=== PATIENT | female | born 1965 | race African-American/Black ===

== ENCOUNTER 2016-06-20 10:02 | Day surgery (SDC) | payer BC ==
[~2016-06-20 10:02] MED LIST: ACETTAB3 OR; ADVAIR DISK1 IN; ADVAIR DISK1 INH; ALBUTEROL2.5 MG/3 M IN; ALPRAZOLAM0.25 M1 PO; AMITRIPTYLIN50 MG OR; AMLODIPINE10 MG PO; AVELOX400 MG OR; AVELOX400 MG PO; BREO ELLIPTA1 INH NEB; BREO ELLIPTA1 INH PO; CARDIZEM CD120 MG PO; CARDURA2 MG OR; CIPROFLOXACN500 MG PO; CORTISPORIN OTI10 ML AD; COUMADIN3 MG PO; COUMADIN5 MG PO; DILTIAZEM HCL240 MG PO; DILTIAZEM240 MG PO; DULCOLAX5 MG PO; DYMISTA1 SPR; FIORICET OR; FIORICET PO; LOPRESSOR50 MG OR; LORTAB 1010 MG PO; LORTAB 7.57.5 MG PO; LORTAB5 PO; LOSARTAN POT100 MG PO; LOSARTAN POT50 MG PO; LOTREL 5/101 CAP OR; Levaquin PO; MEDDOSEPAK OR; MEDDOSEPAK PO; METO100T50 PO; METO25TAB OR; METO50TA52 OR; METOPROLOL50 M1 PO; METRONIDAZOL500 MG PO; MIDRIN OR; MIRALAX3350 NF PO; NAPROSYN500 MG PO; PROBIOTIC1 TAB PO; PROTONIX40 M2 PO; PROVENTIL HFA IN; PROVENTIL0.083 % IN; RANITIDINE150 M1 PO; ROCEPHIN 1 GM1 GM IV; SENOKOT S1 TAB PO; SINGULAIR PO; SINGULAIR10 MG PO; SUMATRIPTAN SU100 MG PO; TOPIRAMATE100 MG PO; TOPIRAMATE25 M1 OR; TRAMADOL HCL50 MG PO; ULTRAM50 M1 OR; ULTRAM50 M1 PO; ULTRAM50 MG OR; ULTRAM50 MG PO; VERAPAMIL120 M1 PO; XANAX0.25 MG PO; XARELTO10 MG PO; XARELTO20 MG PO; XOPENEX HFA IN; ZITHROMAX500 MG PO; ZOFRAN ODT4 MG OR; ZOFRAN ODT4 MG PO; ZOFRAN ODT4 MG SL; [UNRECOGNIZED DRUG - OTHER] OR
[2016-06-20 12:03] VITALS: BP 143/70
== END 2016-06-20 12:30 | disposition home or self-care (01) | DRG 379 ==
LOC: ENDO 10:02 → ORM 21:00
PROVIDERS: ATTEND Internal Medicine Gastroenterology
PROC: 0DBK8ZX Excision of Ascending Colon, Via Natural or Artificial Opening Endoscopic, Diagnostic (ICD-10-PCS; principal; 2016-06-20)
PROC: 0DBL8ZX Excision of Transverse Colon, Via Natural or Artificial Opening Endoscopic, Diagnostic (ICD-10-PCS; 2016-06-20)
DX: K62.5 Hemorrhage of anus and rectum (principal); I48.91 Unspecified atrial fibrillation; I10 Essential (primary) hypertension; K29.70 Gastritis, unspecified, without bleeding; R10.13 Epigastric pain; D12.3 Benign neoplasm of transverse colon; D12.2 Benign neoplasm of ascending colon; K64.8 Other hemorrhoids; K64.4 Residual hemorrhoidal skin tags; K57.30 Diverticulosis of large intestine without perforation or abscess without bleeding; G47.30 Sleep apnea, unspecified; J45.909 Unspecified asthma, uncomplicated; Z86.010 Personal history of colon polyps

== ENCOUNTER 2016-12-26 05:47 | Day surgery (SDC) | payer BC ==
[~2016-12-26] VITALS: Ht 152.4 cm; Wt 90.7 kg
[~2016-12-26 05:47] MED LIST changes: +HYZAAR1 TA1 PO
[2016-12-26 08:40] VITALS: BP 123/58
== END 2016-12-26 08:55 | disposition home or self-care (01) | DRG 379 ==
LOC: ENDO 05:47 → ORM 12:00 → ENDO 12:00 → ORM 12:15
PROVIDERS: ATTEND Internal Medicine Gastroenterology
PROC: 0DBK8ZX Excision of Ascending Colon, Via Natural or Artificial Opening Endoscopic, Diagnostic (ICD-10-PCS; principal; 2016-12-26)
PROC: 0DBL8ZX Excision of Transverse Colon, Via Natural or Artificial Opening Endoscopic, Diagnostic (ICD-10-PCS; 2016-12-26)
PROC: 0DBN8ZX Excision of Sigmoid Colon, Via Natural or Artificial Opening Endoscopic, Diagnostic (ICD-10-PCS; 2016-12-26)
DX: K62.5 Hemorrhage of anus and rectum (principal); D12.2 Benign neoplasm of ascending colon; K64.8 Other hemorrhoids; K57.90 Diverticulosis of intestine, part unspecified, without perforation or abscess without bleeding; D12.3 Benign neoplasm of transverse colon; K63.5 Polyp of colon; K64.4 Residual hemorrhoidal skin tags; K29.70 Gastritis, unspecified, without bleeding; R10.13 Epigastric pain

== ENCOUNTER 2017-01-05 16:26 | Emergency (ER) | payer BC ==
[~2017-01-05] VITALS: Ht 152.4 cm; Wt 97.6 kg
[2017-01-05] MEDS ORDERED: SINGULAIR10 MG PO (17:06)
[2017-01-05 17:07] LABS: HEMATOCRIT 44.1 % (37.0-47.0); HEMOGLOBIN 14.2 g/dl (12.0-16.0); MEAN CELL VOLUME 87.3 fL CALC (80.0-100.0); MEAN CORPUSCULAR HGB 28.1 pG CALC (26.0-32.0); MEAN CORPUSCULAR HGB CONC 32.2 g/L CALC (32.0-36.0); NEUT# 8.4 thou/uL (2.00-7.15); RED BLOOD COUNT 5.05 mill/uL (4.20-5.60); RED CELL DISTRI WIDTH 14.1 % (11.5-15.5)
[2017-01-05 17:08] LABS: URINE BILIRUBIN - DIPSTICK NEGATIVE (NEGATIVE); URINE BLOOD DIPSTICK SMALL (NEGATIVE); URINE CLARITY CLEAR; URINE COLOR YELLOW; URINE GLUCOSE - DIPSTICK NEGATIVE (NEGATIVE); URINE KETONE NEGATIVE (NEGATIVE); URINE LEUK ESTERASE NEGATIVE (NEGATIVE); URINE NITRITE - DIPSTICK NEGATIVE (Negative); URINE PROTEIN - DIPSTICK NEGATIVE (NEG-TRACE); URINE SPECIFIC GRAVITY 1.015; URINE UROBILINOGEN - DIPSTICK 0.2 E.U./dL (0.2)
[2017-01-05] MEDS ORDERED: NORVASC5 M1 PO (17:21)
[2017-01-05] MEDS ORDERED: XOLAIR150 MG SC (17:22)
[2017-01-05] MEDS ORDERED: Levaquin PO (17:23)
[2017-01-05] MEDS ORDERED: PREDNISONE20 MG PO (17:23)
[2017-01-05 17:25] LABS: URINE SQUAMOUS EPITHELIAL CELL FEW EPI/hpf (0-FEW); URINE WBC 0-2 WBC/hpf (0-5)
[2017-01-05 17:44] LABS: ALBUMIN 4.6 g/dL (3.2-5.0); ALKALINE PHOSPHATASE 110 u/l (38-126); AMYLASE 146 u/l (30-110); ANION GAP 18 (6-22 (CALC)); BILIRUBIN, TOTAL 0.4 mg/dL (0.0-1.4); BUN 12 mg/dL (7-17); BUN/CREATININE RATIO 19 (12-20 (CALC)); CALCIUM 9.3 mg/dL (8.4-10.2); CARBON DIOXIDE 26 mmol/l (22-30); CHLORIDE 104 mmol/l (95-108); CREATININE 0.6 mg/dL (0.5-1.0); GFR > 60 ML/MIN (>=60 (CALC)); GFR FOR AFR.AMER. > 60 ML/MIN (>=60 (CALC)); GLUCOSE 123 mg/dL (65-105); LIPASE 325 u/l (23-300); POTASSIUM 4.1 mmol/l (3.5-5.1); SGOT/AST 59 u/l (14-36); SGPT/ALT 104 u/l (9-52); SODIUM 143 mmol/l (137-146); TOTAL PROTEIN 8.6 g/dL (6.3-8.2)
[2017-01-05 17:56] LABS: MYOGLOBIN 20 ng/mL (0 - 62)
[2017-01-05] MEDS ORDERED: ZITHROMAX250 MG PO (18:14)
[2017-01-05] MEDS ORDERED: TESSALON PER100 MG PO (18:14)
[2017-01-05] MEDS ORDERED: COLACE100 MG PO (18:14)
[2017-01-05] MEDS ORDERED: PREDNISONE50 MG PO (18:14)
[2017-01-05 18:22] VITALS: BP 172/83
== END 2017-01-05 18:34 | disposition home or self-care (01) | DRG 378 ==
LOC: ED 16:26
PROVIDERS: Emergency Medicine
DX: K62.5 Hemorrhage of anus and rectum (principal); J45.901 Unspecified asthma with (acute) exacerbation; I10 Essential (primary) hypertension; I48.91 Unspecified atrial fibrillation; I25.10 Atherosclerotic heart disease of native coronary artery without angina pectoris; F41.9 Anxiety disorder, unspecified; Z86.73 Personal history of transient ischemic attack (TIA), and cerebral infarction without residual deficits

== ENCOUNTER 2017-01-25 14:05 | Observation (INO) | payer BC ==
[~2017-01-25] VITALS: Ht 152.4 cm; Wt 94.7 kg
[~2017-01-25 14:05] MED LIST changes: +COLACE100 MG PO; +NORVASC5 M1 PO; +PREDNISONE20 MG PO; +PREDNISONE50 MG PO; +TESSALON PER100 MG PO; +XOLAIR150 MG SC; +ZITHROMAX250 MG PO
--- NOTE | 2017-01-25 14:16 | NUR ---
PT TAKEN STRAIGHT BACK TO ER ROOM 12 VIA WC. PT CHANGED INTO GOWN BY SELF. MD & RN @ BEDSIDE.
--- NOTE | 2017-01-25 14:38 | NUR ---
PT NOW WITH EKG DONE, IV ESTABLISHED WITH BLOOD DRAW. NO ACUTE DISTRESS NOTED.
[2017-01-25 14:42] LABS: HEMATOCRIT 40.6 % (37.0-47.0); IMMATURE GRANULOCYTES 0.1 % (0.0-1.0); MEAN CELL VOLUME 88.8 fL CALC (80.0-100.0); MEAN CORPUSCULAR HGB 28.4 pG CALC (26.0-32.0); NEUT# 3.55 thou/uL (2.00-7.15); RED BLOOD COUNT 4.57 mill/uL (4.20-5.60); RED CELL DISTRI WIDTH 14.5 % (11.5-15.5)
[2017-01-25 15:25] LABS: ALBUMIN 4.2 g/dL (3.2-5.0); ALKALINE PHOSPHATASE 93 u/l (38-126); ANION GAP 14 (6-22 (CALC)); BILIRUBIN, TOTAL 0.4 mg/dL (0.0-1.4); BUN 11 mg/dL (7-17); BUN/CREATININE RATIO 11 (12-20 (CALC)); CALCIUM 9.3 mg/dL (8.4-10.2); CARBON DIOXIDE 31 mmol/l (22-30); CHLORIDE 100 mmol/l (95-108); CREATININE 0.9 mg/dL (0.5-1.0); GFR > 60 ML/MIN (>=60 (CALC)); GFR FOR AFR.AMER. > 60 ML/MIN (>=60 (CALC)); GLUCOSE 106 mg/dL (65-105); LIPASE 332 u/l (23-300); POTASSIUM 3.5 mmol/l (3.5-5.1); SGOT/AST 26 u/l (14-36); SGPT/ALT 43 u/l (9-52); SODIUM 141 mmol/l (137-146); TOTAL PROTEIN 7.1 g/dL (6.3-8.2)
--- NOTE | 2017-01-25 15:38 | NUR ---
PT AMBULATORY TO BR, NO DISTRESS. PT DOES COMPLAIN OF BACK PAIN, STATES THAT SHE NEEDED TO SLEEP SITTING ALMOST STRAIGHT UP LAST NIGHT.
[2017-01-25 17:00] VITALS: BP 141/86
--- NOTE | 2017-01-25 17:00 | NUR ---
PT EMOTIONAL AND VOICES CONCERNS OF POSSIBLE COLON CANCER, RECENT VISIT TO [facility]. AWAITING RESULTS.
--- NOTE | 2017-01-25 17:00 | NUR ---
PT TRANSFERED TO UNIT VIA STRETCHER WITH RUPA READ. PT ORIENTED TO ROOM AND CALL LIGHT SYSTEM. NO SIGNS OF DISTRESS FROM PT. SAFETY PRECAUTIONS IN PLACE. CALL LIGHT IN PLACE. WILL CONTINUE TO MONITOR HOURLY.
--- NOTE | 2017-01-25 17:13 | NUR ---
PT TAKEN TO ROOM 262 WITHOUT INCIDENT, REPORT WAS TO CHARLES.
[2017-01-25] MEDS ORDERED: LOSARTAN/HCT1 TA2 PO (17:45)
[2017-01-25 18:00] VITALS: BP 126/81
--- NOTE | 2017-01-25 22:00 | NUR ---
PT RESTING IN HIGH FOWLERS POSITION;ASSESSMENT COMPLETED;#20G TO RAC INFUSING NS @ 125ML/HR WELL;PT COMPLAINS OF LEFT SIDED ABDOMINAL PAIN AND RADIATING BACK PAIN;EDUCATED PT ON PAIN MEDICATION SCHEDULE, COOL COMPRESSES PROVIDED PER REQUEST;NO SOB NOTED AT THIS TIME; PT AMBULATED WITH WEAK GAIT AND ASSISTED DEVICE TO BATHROOM AND VOIDED 300CC OF CLEAR/YELLOW URINE;PT REPOSITIONED INTO BED;TRACE EDEMA NOTED TO RIGHT ANKLE,OTHERWISE SKIN INTACT;SAFETY PRECAUTIONS REINFORCED;PT EDUCATED TO CALL FOR ASSISTANCE IF NEEDED;CALL LIGHT IN REACH;WILL CONTINUE TO MONITOR
--- NOTE | 2017-01-25 23:30 | NUR ---
PT COMPLAINS OF LEFT SIDED ABDOMINAL PAIN RATING 10/10 ON THE PAIN SCALE AND REQUESTS PAIN MEDICATION;PT MEDICATED WITH PRN DILAUDID 0.5MG AT THIS TIME;IV FLUIDS INFUSING WELL TO RAC;PT VOICES NO OTHER COMPLAINTS OR NEEDS;WILL CONTINUE TO MONITOR
[2017-01-25 23:55] VITALS: BP 126/72
[2017-01-26] VITALS (7 sets, daily range): BP systolic 118–153; BP diastolic 69–95
--- NOTE | 2017-01-26 03:28 | NUR ---
PT COMPLAINS OF HEADACHE PAIN RATING 5/10 ON THE PAIN SCALE AND REQUESTS PRN PAIN MEDICATION;PT MEDICATED WITH TYLENOL 650MG;PT REPORTS THAT SHE FEELS LIKE HER BP IS ELEVATED,PER REQUEST MANUAL BP OF 121/70 OBTAINED;PT THEN ASKES FOR AN EMESIS BACK BECAUSE SHE FEELS NAUSEOUS;IV FLUIDS INFUSING WELL @ 125ML/HR;RESPIRATIONS EVEN AND UNLABORED ON RA;CALL LIGHT IN REACH;WILL CONTINUE TO MONITOR FOR EFFECT
[2017-01-26 05:54] LABS: HEMATOCRIT 37.6 % (37.0-47.0); HEMOGLOBIN 11.8 g/dl (12.0-16.0); MEAN CELL VOLUME 89.5 fL CALC (80.0-100.0); MEAN CORPUSCULAR HGB 28.1 pG CALC (26.0-32.0); MEAN CORPUSCULAR HGB CONC 31.4 g/L CALC (32.0-36.0); RED BLOOD COUNT 4.2 mill/uL (4.20-5.60); RED CELL DISTRI WIDTH 14.6 % (11.5-15.5)
--- NOTE | 2017-01-26 06:10 | NUR ---
PT COMPLAINS ABDOMINAL PAIN AND HEADACHE PAIN AT THIS TIME;PT DENIES THE NEED/WANT FOR DILAUDID AND IS EDUCATED THAT IT IS TO SOON FOR HER TO RECEIVE HER TYLENOL;COOL COMPRESS PROVIDED TO HEAD AND LIGHTS DIMMED FOR COMFORT;PT DENIES ANY OTHER NEEDS AT THIS TIME AND IS EDUCATED TO CALL FOR ASSISTANCE IF NEEDED;CALL LIGHT IN REACH;WILL CONTINUE TO MONITOR
[2017-01-26 06:18] LABS: ANION GAP 12 (6-22 (CALC)); BUN 10 mg/dL (7-17); BUN/CREATININE RATIO 17 (12-20 (CALC)); CALCIUM 8.6 mg/dL (8.4-10.2); CALCULATED LDLCHOLESTEROL 76 mg/dL (62-129 (CALC)); CARBON DIOXIDE 28 mmol/l (22-30); CHLORIDE 102 mmol/l (95-108); CHOLESTEROL HDL RATIO 2.4 (<4.4 (CALC)); CREATININE 0.6 mg/dL (0.5-1.0); GFR > 60 ML/MIN (>=60 (CALC)); GFR FOR AFR.AMER. > 60 ML/MIN (>=60 (CALC)); GLUCOSE 100 mg/dL (65-105); HDL CHOLESTEROL 67 mg/dL (>=40); LIPASE 233 u/l (23-300); POTASSIUM 3.5 mmol/l (3.5-5.1); SODIUM 139 mmol/l (137-146); TOTAL CHOLESTEROL 161 mg/dl (0-199); TOTAL TRIGLYCERIDES 91 mg/dl (30-149); VLDL CHOLESTROL 18 mg/dl (2-49 (CALC))
--- NOTE | 2017-01-26 07:00 | NUR ---
RECEIVED BEDSIDE REPORT FROM GILES PORTILLO. RESTING IN HIGH FOWLERS WITH EYES CLOSED, AWAKENS EASILY. RESPS EVEN AND UNLABORED ON ROOM AIR, TELE MONITOR IN PLACE. #20RAC INFUSING WITHOUT DIFFICULTY, SITE APPEARS HEALTHY. VOICES NO NEEDS AT THIS TIME. PLAN OF CARE DISCUSSED. SAFETY PRECAUTIONS REINFORCED. BED IN LOWEST POSITION WITH WHEELS LOCKED. CALL LIGHT WITHIN REACH. ENCOURAGED PT TO CALL FOR ANY NEEDS.
--- NOTE | 2017-01-26 10:55 | NUR ---
MEDICATED WITH FIORICET PO AND MORPHINE 2MG IVP FOR C/O 12/30 HEADACHE. WILL CONTINUE TO MONITOR.
--- NOTE | 2017-01-26 11:35 | NUR ---
DR MORLEY IN WITH PT, NEW ORDERS RECEIVED.
--- NOTE | 2017-01-26 14:15 | NUR ---
TO CT SCAN IN STABLE CONDITION VIA WHEELCHAIR ACCOMPANIED BY VOLUNTEER.
--- NOTE | 2017-01-26 14:30 | NUR ---
FROM CT SCAN VIA WHEELCHAIR ACCOMPANIED BY VOLUNTEER.
--- NOTE | 2017-01-26 14:40 | NUR ---
SPOKE to patient about her pancreatitis conditions. She mentioned not to experience any side effects with her current medications. She still experience a lot of pain in her abdominal region. She does not have any questions to do doctors or pharmacists at this time.
--- NOTE | 2017-01-26 16:45 | NUR ---
MEDICATED WITH MORPHINE 2MG IVP FOR C/O 10/30 HEADACHE. RESPS EVEN AND UNLABORED ON ROOM AIR, TELE MONITOR IN PLACE. CALL LIGHT WITHIN REACH. WILL CONTINUE TO MONITOR.
--- NOTE | 2017-01-26 19:15 | NUR ---
MEDICATED WITH FIORICET PO FOR C/O 10/30 HEADACHE. AMBULATED TO BATHROOM WITH STEADY GAIT.
--- NOTE | 2017-01-26 19:29 | NUR ---
TOLERATED REGULAR DIET WITHOUT C/O ABD PAIN OR NAUSEA. CALL LIGHT WITHIN REACH. WILL CONTINUE TO MONITOR.
--- NOTE | 2017-01-26 20:45 | NUR ---
PT RESTING IN HIGH FOWLERS POSITION WITH FAMILY AT BEDSIDE;PT VOICES NO COMPLAINTS OF PAIN AT THIS TIME;RESPIRATIONS EVEN AND UNLABORED ON RA;ASSESSMENT COMPLETED;#20G TO RAC INFUSING NS @ 125ML/HR;TELE MONITOR IN PLACE;PT DENIES ANY NEEDS AT THIS TIME;SAFETY PRECAUTIONS REINFORCED;CALL LIGHT IN REACH;WILL CONTINUE TO MONITOR
--- NOTE | 2017-01-26 23:55 | NUR ---
PT APPEARS TO BE SLEEPING IN SEMI FOWLERS POSITION;VS OBTAINED BY KRISTIAN NICHOLS;RESPIRATIONS EVEN AND UNLABORED ON RA;PT VOICES NO COMPLAINTS AT THIS TIME;CALL LIGHT IN REACH;WILL CONTINUE TO MONITOR
[2017-01-27 04:05] VITALS: BP 125/79
--- NOTE | 2017-01-27 04:05 | NUR ---
PT RESTING IN SEMI FOWLERS POSITION WITH IV FLUIDS INFUSING WELL TO RAC;PT COMPLAINS OF A HEADACHE PAIN AND REQUESTS MEDICATION;PT TO BE MEDICATED PER ORDERS;RESPIRATIONS EVEN AND UNLABORED ON RA;VS OBTAINED;WILL CONTINUE TO MONITOR
--- NOTE | 2017-01-27 04:30 | NUR ---
PT MEDICATED WITH PRN FIORIECT 1 COMBO FOR HEADACHE PAIN RATING 8/10 ON THE PAIN SCALE
--- NOTE | 2017-01-27 07:00 | NUR ---
RECEIVED BEDSIDE REPORT FROM GILES PORTILLO. RESTING IN SEMI FOWLERS WITH EYES CLOSED, AWAKENS EASILY. RESPS EVEN AND UNLABORED ON ROOM AIR, TELE MONITOR IN PLACE. #20 RAC INFUSING WITHOUT DIFFICULTY, SITE APPEARS HEALTHY. DENIES PAIN OR DISCOMFORT. PLAN OF CARE DISCUSSED. SAFETY PRECAUTIONS REINFORCED. BED IN LOWEST POSITION WITH WHEELS LOCKED. CALL LIGHT WITHIN REACH. ENCOURAGED PT TO CALL FOR ANY NEEDS.
[2017-01-27 07:25] VITALS: BP 141/65
[2017-01-27 08:49] VITALS: BP 141/65
[2017-01-27 09:17] LABS: MAGNESIUM 1.9 mg/dL (1.6-2.3)
--- NOTE | 2017-01-27 10:30 | NUR ---
DR MORLEY IN WITH PT, NEW ORDERS RECEIVED.
[2017-01-27] MEDS ORDERED: CARAFATE1 GM PO (11:54)
[2017-01-27] MEDS ORDERED: PANTOPRAZOLE SO40 M1 PO (11:54)
--- NOTE | 2017-01-27 12:10 | NUR ---
SITTING IN BEDSIDE CHAIR EATING LUNCH. RESPS EVEN AND UNLABORED ON ROOM AIR, TELE MONITOR IN PLACE. MEDICATED WITH FIORICET PO FOR C/O HEADACHE. CALL LIGHT WITHIN REACH. WILL CONTINUE TO MONITOR.
--- NOTE | 2017-01-27 13:40 | NUR ---
Discharge instructions given. Patient verbalizes understanding of same. Discharged in stable condition via Wheelchair to Home with family. All belongings sent with pt.
== END 2017-01-27 13:39 | disposition home or self-care (01) | DRG 440 ==
LOC: ED 14:05 → ED-I 15:47 → ED 16:02 → MS2 16:03
PROVIDERS: Emergency Medicine; Nurse Practitioner Family; ADMIT Internal Medicine; ATTEND Internal Medicine
DX: K85.90 Acute pancreatitis without necrosis or infection, unspecified (principal); I48.91 Unspecified atrial fibrillation; I10 Essential (primary) hypertension; F41.9 Anxiety disorder, unspecified; G43.909 Migraine, unspecified, not intractable, without status migrainosus; I25.10 Atherosclerotic heart disease of native coronary artery without angina pectoris; J45.909 Unspecified asthma, uncomplicated; Z86.73 Personal history of transient ischemic attack (TIA), and cerebral infarction without residual deficits; Z79.01 Long term (current) use of anticoagulants; Z87.891 Personal history of nicotine dependence; Z86.010 Personal history of colon polyps
CPT/HCPCS: G0378

== ENCOUNTER 2017-06-15 08:43 | Emergency (ER) | payer BC ==
[~2017-06-15] VITALS: Ht 152.4 cm; Wt 90.9 kg
[~2017-06-15 08:43] MED LIST changes: +CARAFATE1 GM PO; +LOSARTAN/HCT1 TA2 PO; +PANTOPRAZOLE SO40 M1 PO
[2017-06-15] MEDS ORDERED: KLOR-CON M2020 MEQ PO (09:17)
[2017-06-15 10:12] LABS: HEMATOCRIT 39.4 % (37.0-47.0); HEMOGLOBIN 12.5 g/dl (12.0-16.0); IMMATURE GRANULOCYTES 0.4 % (0.0-1.0); MEAN CELL VOLUME 89.1 fL CALC (80.0-100.0); MEAN CORPUSCULAR HGB 28.3 pG CALC (26.0-32.0); MEAN CORPUSCULAR HGB CONC 31.7 g/L CALC (32.0-36.0); NEUT# 3.74 thou/uL (2.00-7.15); RED BLOOD COUNT 4.42 mill/uL (4.20-5.60)
[2017-06-15 10:29] LABS: ANION GAP 18 (6-22 (CALC)); BUN 8 mg/dL (7-17); BUN/CREATININE RATIO 12 (12-20 (CALC)); CARBON DIOXIDE 32 mmol/l (22-30); CHLORIDE 98 mmol/l (95-108); CREATININE 0.7 mg/dL (0.5-1.0); GFR > 60 ML/MIN (>=60 (CALC)); GFR FOR AFR.AMER. > 60 ML/MIN (>=60 (CALC)); POTASSIUM 3.2 mmol/l (3.5-5.1); SODIUM 145 mmol/l (137-146)
[2017-06-15] MEDS ORDERED: DOXYCYC MONO100 M2 PO (14:00)
[2017-06-15 14:22] VITALS: BP 114/65
[2017-06-15] MEDS ORDERED: VOLTAREN1%GEL TOP (14:30)
== END 2017-06-15 14:29 | disposition home or self-care (01) | DRG 552 ==
LOC: ED 08:43
PROVIDERS: Family Medicine
DX: M54.2 Cervicalgia (principal); M47.812 Spondylosis without myelopathy or radiculopathy, cervical region; M54.6 Pain in thoracic spine; M47.814 Spondylosis without myelopathy or radiculopathy, thoracic region
CPT/HCPCS: A9579

== ENCOUNTER 2017-08-15 09:57 | Emergency (ER) | payer BC ==
[~2017-08-15] VITALS: Ht 152.4 cm; Wt 90.9 kg
[~2017-08-15 09:57] MED LIST changes: +DOXYCYC MONO100 M2 PO; +KLOR-CON M2020 MEQ PO; +VOLTAREN1%GEL TOP
[2017-08-15 10:33] LABS: URINE BILIRUBIN - DIPSTICK NEGATIVE (NEGATIVE); URINE BLOOD DIPSTICK TRACE-LYSED (NEGATIVE); URINE COLOR YELLOW; URINE GLUCOSE - DIPSTICK NEGATIVE (NEGATIVE); URINE KETONE NEGATIVE (NEGATIVE); URINE LEUK ESTERASE NEGATIVE (NEGATIVE); URINE NITRITE - DIPSTICK NEGATIVE (Negative); URINE PROTEIN - DIPSTICK NEGATIVE (NEG-TRACE); URINE UROBILINOGEN - DIPSTICK 0.2 E.U./dL (0.2)
[2017-08-15 10:33] LABS: HEMATOCRIT 41.6 % (37.0-47.0); HEMOGLOBIN 12.8 g/dl (12.0-16.0); IMMATURE GRANULOCYTES 0.2 % (0.0-1.0); MEAN CELL VOLUME 88.7 fL CALC (80.0-100.0); MEAN CORPUSCULAR HGB 27.3 pG CALC (26.0-32.0); MEAN CORPUSCULAR HGB CONC 30.8 g/L CALC (32.0-36.0); NEUT# 3.47 thou/uL (2.00-7.15); RED BLOOD COUNT 4.69 mill/uL (4.20-5.60); RED CELL DISTRI WIDTH 14.1 % (11.5-15.5)
[2017-08-15 10:40] LABS: URINE CLARITY CLEAR
[2017-08-15] MEDS ORDERED: METO50TA52 PO (10:40)
[2017-08-15 10:52] LABS: ALBUMIN 4.2 g/dL (3.2-5.0); ALKALINE PHOSPHATASE 109 u/l (38-126); ANION GAP 15 (6-22 (CALC)); BILIRUBIN, TOTAL 0.5 mg/dL (0.0-1.4); BUN 11 mg/dL (7-17); BUN/CREATININE RATIO 16 (12-20 (CALC)); CARBON DIOXIDE 32 mmol/l (22-30); CHLORIDE 98 mmol/l (95-108); CREATININE 0.7 mg/dL (0.5-1.0); GFR > 60 ML/MIN (>=60 (CALC)); GFR FOR AFR.AMER. > 60 ML/MIN (>=60 (CALC)); LIPASE 304 u/l (23-300); POTASSIUM 3.6 mmol/l (3.5-5.1); SGOT/AST 24 u/l (14-36); SGPT/ALT 42 u/l (9-52); SODIUM 141 mmol/l (137-146)
[2017-08-15 13:26] VITALS: BP 107/70
== END 2017-08-15 13:26 | disposition home or self-care (01) | DRG 103 ==
LOC: ED 09:57
PROVIDERS: Family Medicine
DX: R51 Headache (principal); K44.9 Diaphragmatic hernia without obstruction or gangrene; R10.11 Right upper quadrant pain; M54.2 Cervicalgia; R11.0 Nausea
CPT/HCPCS: Q9967

== ENCOUNTER 2017-12-02 09:07 | Emergency (ER) | payer BC ==
[~2017-12-02] VITALS: Ht 152.4 cm; Wt 94.1 kg
[~2017-12-02 09:07] MED LIST changes: +METO50TA52 PO
[2017-12-02] MEDS ORDERED: MEDDOSEPAK PO (10:49)
[2017-12-02 11:15] VITALS: BP 137/83
== END 2017-12-02 11:15 | disposition home or self-care (01) | DRG 103 ==
LOC: ED 09:07
DX: R51 Headache (principal); M46.92 Unspecified inflammatory spondylopathy, cervical region; I10 Essential (primary) hypertension; J45.909 Unspecified asthma, uncomplicated; I48.91 Unspecified atrial fibrillation; Z86.73 Personal history of transient ischemic attack (TIA), and cerebral infarction without residual deficits

== ENCOUNTER 2018-04-22 11:41 | Emergency (ER) | payer BC ==
[~2018-04-22] VITALS: Ht 152.4 cm; Wt 90.9 kg
[2018-04-22] MEDS ORDERED: WARFARIN1 MG PO (13:44)
[2018-04-22] MEDS ORDERED: PROVENTIL0.083 % IN (13:47)
[2018-04-22] MEDS ORDERED: BREO ELLIPTA1 INH PO (13:47)
[2018-04-22] MEDS ORDERED: XOLAIR150 MG SC (13:48)
[2018-04-22 15:35] LABS: HEMATOCRIT 41.4 % (37.0-47.0); HEMOGLOBIN 12.5 g/dl (12.0-16.0); IMMATURE GRANULOCYTES 0.4 % (0.0-5.0); MEAN CELL VOLUME 87.7 fL CALC (80.0-100.0); MEAN CORPUSCULAR HGB 26.5 pG CALC (26.0-32.0); MEAN CORPUSCULAR HGB CONC 30.2 g/L CALC (32.0-36.0); NEUT# 5.57 thou/uL (2.00-7.15); RED BLOOD COUNT 4.72 mill/uL (4.20-5.60); RED CELL DISTRI WIDTH 14.5 % (11.5-15.5)
[2018-04-22 15:57] LABS: ALBUMIN 4.3 g/dL (3.2-5.0); ALKALINE PHOSPHATASE 106 u/l (38-126); BILIRUBIN, TOTAL 0.2 mg/dL (0.0-1.4); BUN 8 mg/dL (7-17); BUN/CREATININE RATIO 13 (12-20 (CALC)); CARBON DIOXIDE 24 mmol/l (22-30); CHLORIDE 105 mmol/l (95-108); CREATININE 0.6 mg/dL (0.5-1.0); GFR > 60 ML/MIN (>=60 (CALC)); GFR FOR AFR.AMER. > 60 ML/MIN (>=60 (CALC)); SGOT/AST 27 u/l (14-36); SODIUM 140 mmol/l (137-146); TOTAL PROTEIN 7.5 g/dL (6.3-8.2)
[2018-04-22 15:58] LABS: ANION GAP 15 (6-22 (CALC)); POTASSIUM 4.4 mmol/l (3.5-5.1)
[2018-04-22] MEDS ORDERED: ANUCORT-HC25 MG RE (19:09)
[2018-04-22 19:21] VITALS: BP 142/76
== END 2018-04-22 19:20 | disposition home or self-care (01) | DRG 379 ==
LOC: ED 11:41
PROVIDERS: Emergency Medicine
DX: K62.5 Hemorrhage of anus and rectum (principal); K64.4 Residual hemorrhoidal skin tags
CPT/HCPCS: Q9967

== ENCOUNTER 2018-11-06 22:21 | Emergency (ER) | payer BC ==
[~2018-11-06] VITALS: Ht 152.4 cm; Wt 95.4 kg
[~2018-11-06 22:21] MED LIST changes: +ANUCORT-HC25 MG RE; +WARFARIN1 MG PO
[2018-11-06] MEDS ORDERED: LORATADINE10 M4 PO (22:59)
[2018-11-06] MEDS ORDERED: LOSARTAN/HCT1 TA2 PO (23:00)
[2018-11-06] MEDS ORDERED: XARELTO10 MG PO (23:01)
[2018-11-06] MEDS ORDERED: HYDROCODONE/ACE1 TAB PO (23:02)
[2018-11-06] MEDS ORDERED: BACTRIM DS1 TAB PO (23:03)
[2018-11-06 23:09] LABS: IMMATURE GRANULOCYTES 0.6 % (0.0-5.0); MEAN CORPUSCULAR HGB 24.5 pG CALC (26.0-32.0); MEAN CORPUSCULAR HGB CONC 30.3 g/L CALC (32.0-36.0); NEUT# 8.26 thou/uL (2.00-7.15); RED BLOOD COUNT 4.2 mill/uL (4.20-5.60); RED CELL DISTRI WIDTH 16.6 % (11.5-15.5)
[2018-11-06 23:11] LABS: HEMOGLOBIN 10.3 g/dl (12.0-16.0)
[2018-11-06 23:24] LABS: ALBUMIN 3.9 g/dL (3.2-5.0); ALKALINE PHOSPHATASE 80 u/l (38-126); BUN 6 mg/dL (7-17); BUN/CREATININE RATIO 7 (12-20 (CALC)); CHLORIDE 101 mmol/l (95-108); CREATININE 0.9 mg/dL (0.5-1.0); GFR > 60 ML/MIN (>=60 (CALC)); GFR FOR AFR.AMER. > 60 ML/MIN (>=60 (CALC)); SGOT/AST 28 u/l (14-36); SODIUM 138 mmol/l (137-146); TOTAL PROTEIN 7.2 g/dL (6.3-8.2)
[2018-11-06 23:28] LABS: ANION GAP 10 (6-22 (CALC)); BILIRUBIN, TOTAL 0.4 mg/dL (0.0-1.4); CARBON DIOXIDE 30 mmol/l (22-30); POTASSIUM 3.1 mmol/l (3.5-5.1)
[2018-11-07] MEDS ORDERED: DOXYCYCL HYC100 MG PO (00:05)
[2018-11-07 00:30] VITALS: BP 130/78
== END 2018-11-07 00:30 | disposition home or self-care (01) | DRG 863 ==
LOC: ED 22:21
PROVIDERS: Family Medicine
DX: T81.41XA Infection following a procedure, superficial incisional surgical site, initial encounter (principal); L03.115 Cellulitis of right lower limb; I10 Essential (primary) hypertension; I48.91 Unspecified atrial fibrillation; L27.0 Generalized skin eruption due to drugs and medicaments taken internally; T37.0X5A Adverse effect of sulfonamides, initial encounter; Y83.1 Surgical operation with implant of artificial internal device as the cause of abnormal reaction of the patient, or of later complication, without mention of misadventure at the time of the procedure

== ENCOUNTER 2019-04-19 09:09 | Emergency (ER) | payer BC ==
[~2019-04-19 09:09] MED LIST changes: +BACTRIM DS1 TAB PO; +DOXYCYCL HYC100 MG PO; +HYDROCODONE/ACE1 TAB PO; +LORATADINE10 M4 PO
[2019-04-19 09:50] VITALS: BP 145/90
[2019-12-26] MEDS ORDERED: SLOW-MAG PO (09:53)
[2019-12-26] MEDS ORDERED: [UNRECOGNIZED DRUG - OTHER] (09:53)
[2019-12-26] MEDS ORDERED: LORCET 5-325 MG1 TAB (09:54)
[2019-12-26] MEDS ORDERED: TRULANCE3 MG PO (09:54)
== END 2019-04-19 11:29 | disposition left against medical advice (07) | DRG 951 ==
LOC: ED 09:09 → LWOBS 11:29
DX: Z53.21 Procedure and treatment not carried out due to patient leaving prior to being seen by health care provider (principal)

== ENCOUNTER 2019-05-08 17:16 | Observation (INO) | payer BC ==
[~2019-05-08] VITALS: Ht 152.4 cm; Wt 94.6 kg
[2019-05-08 18:13] LABS: HEMATOCRIT 39.8 % (37.0-47.0); HEMOGLOBIN 11.7 g/dl (12.0-16.0); IMMATURE GRANULOCYTES 0.1 % (0.0-5.0); MEAN CELL VOLUME 81.2 fL CALC (80.0-100.0); MEAN CORPUSCULAR HGB 23.9 pG CALC (26.0-32.0); MEAN CORPUSCULAR HGB CONC 29.4 g/L CALC (32.0-36.0); NEUT# 5.77 thou/uL (2.00-7.15); RED BLOOD COUNT 4.9 mill/uL (4.20-5.60); RED CELL DISTRI WIDTH 16.3 % (11.5-15.5)
[2019-05-08 18:31] LABS: ALBUMIN 4.4 g/dL (3.2-5.0); ALKALINE PHOSPHATASE 97 u/l (38-126); ANION GAP 14 (6-22 (CALC)); BILIRUBIN, TOTAL 0.3 mg/dL (0.0-1.4); BUN 8 mg/dL (7-17); BUN/CREATININE RATIO 14 (12-20 (CALC)); CARBON DIOXIDE 27 mmol/l (22-30); CHLORIDE 103 mmol/l (95-108); CREATININE 0.5 mg/dL (0.5-1.0); GFR > 60 ML/MIN (>=60 (CALC)); GFR FOR AFR.AMER. > 60 ML/MIN (>=60 (CALC)); POTASSIUM 3.2 mmol/l (3.5-5.1); SGOT/AST 24 u/l (14-36); SODIUM 141 mmol/l (137-146); TOTAL PROTEIN 7.8 g/dL (6.3-8.2)
[2019-05-08 20:45] VITALS: BP 158/79
[2019-05-08 22:01] LABS: URINE BILIRUBIN - DIPSTICK NEGATIVE (NEGATIVE); URINE BLOOD DIPSTICK NEGATIVE (NEGATIVE); URINE COLOR YELLOW; URINE GLUCOSE - DIPSTICK NEGATIVE (NEGATIVE); URINE KETONE NEGATIVE (NEGATIVE); URINE LEUK ESTERASE NEGATIVE (NEGATIVE); URINE NITRITE - DIPSTICK NEGATIVE (Negative); URINE PROTEIN - DIPSTICK NEGATIVE (NEG-TRACE); URINE SPECIFIC GRAVITY <=1.005; URINE UROBILINOGEN - DIPSTICK 0.2 E.U./dL (0.2)
[2019-05-08 23:39] VITALS: BP 107/65
[2019-05-09 04:35] VITALS: BP 125/84
[2019-05-09 06:30] LABS: HEMATOCRIT 36.8 % (37.0-47.0); HEMOGLOBIN 10.8 g/dl (12.0-16.0); IMMATURE GRANULOCYTES 0.3 % (0.0-5.0); MEAN CELL VOLUME 81.1 fL CALC (80.0-100.0); MEAN CORPUSCULAR HGB 23.8 pG CALC (26.0-32.0); MEAN CORPUSCULAR HGB CONC 29.3 g/L CALC (32.0-36.0); NEUT# 3.85 thou/uL (2.00-7.15); RED BLOOD COUNT 4.54 mill/uL (4.20-5.60); RED CELL DISTRI WIDTH 16.4 % (11.5-15.5)
[2019-05-09 06:39] LABS: ANION GAP 10 (6-22 (CALC)); BUN 6 mg/dL (7-17); BUN/CREATININE RATIO 11 (12-20 (CALC)); CARBON DIOXIDE 31 mmol/l (22-30); CHLORIDE 103 mmol/l (95-108); CREATININE 0.5 mg/dL (0.5-1.0); GFR > 60 ML/MIN (>=60 (CALC)); GFR FOR AFR.AMER. > 60 ML/MIN (>=60 (CALC)); SODIUM 140 mmol/l (137-146)
[2019-05-09 06:43] LABS: POTASSIUM 3.9 mmol/l (3.5-5.1)
[2019-05-09 08:38] VITALS: BP 126/86
[2019-05-09 11:10] LABS: CHOLESTEROL HDL RATIO 2.5 (<4.4 (CALC)); MAGNESIUM 2.1 mg/dL (1.6-2.3)
[2019-05-09 12:05] VITALS: BP 127/77
[2019-05-09 16:00] VITALS: BP 117/75
[2019-05-09 19:03] VITALS: BP 116/66
[2019-05-09 23:30] VITALS: BP 106/55
[2019-05-10 04:30] VITALS: BP 111/69
[2019-05-10 08:48] VITALS: BP 131/90
[2019-05-10] MEDS ORDERED: HYDROCODONE/ACE1 TAB PO (10:02)
[2019-05-10] MEDS ORDERED: ZOFRAN4 MG/TAB PO ×2 (10:02)
[2019-05-10 11:31] VITALS: BP 113/78
[2019-12-26] MEDS ORDERED: [UNRECOGNIZED DRUG - OTHER] (09:53)
[2019-12-26] MEDS ORDERED: SLOW-MAG PO (09:53)
[2019-12-26] MEDS ORDERED: LORCET 5-325 MG1 TAB (09:54)
[2019-12-26] MEDS ORDERED: TRULANCE3 MG PO (09:54)
== END 2019-05-10 12:41 | disposition home or self-care (01) | DRG 313 ==
LOC: ED 17:16 → ED-I 18:58 → ED 19:17 → MS2 19:18
PROVIDERS: Family Medicine; Nurse Practitioner Family; ADMIT Internal Medicine; ATTEND Internal Medicine
DX: R07.9 Chest pain, unspecified (principal); R51 Headache; I48.0 Paroxysmal atrial fibrillation; I10 Essential (primary) hypertension; I25.10 Atherosclerotic heart disease of native coronary artery without angina pectoris; J45.909 Unspecified asthma, uncomplicated; F41.9 Anxiety disorder, unspecified; E78.5 Hyperlipidemia, unspecified; M25.561 Pain in right knee; Z87.891 Personal history of nicotine dependence; Z86.73 Personal history of transient ischemic attack (TIA), and cerebral infarction without residual deficits; Z79.01 Long term (current) use of anticoagulants
CPT/HCPCS: G0378

== ENCOUNTER 2020-01-03 16:00 | Inpatient (IN) | payer BC ==
[2020-01-03] VITALS (7 sets, daily range): BP systolic 104–154; BP diastolic 73–86
[~2020-01-03] VITALS: Ht 152.4 cm; Wt 98.9 kg
[~2020-01-03 16:00] MED LIST changes: +LORCET 5-325 MG1 TAB; +SLOW-MAG PO; +TRULANCE3 MG PO; +ZOFRAN4 MG/TAB PO; +[UNRECOGNIZED DRUG - OTHER]
--- NOTE | 2020-01-03 16:15 | NUR ---
PT TO ICU BED 6 AMBULATORY WITH CANE. PT HAS EXERTIONAL SOB. PT IS ALERT AND ORIENTED X3. PT CHANGED TO GOWN AND PLACED ON MONITOR. ADMISSION ASSESSMENT COMPLETED AT THIS TIME. IV PLACED #20 RW X1 ATTEMPT. ORIENTED TO UNIT, ROOM, AND CALL LIGHT SYSTEM. PT VERBALIZED UNDERSTANDING. CALL LIGHT IN REACH. WILL CONTINUE TO MONITOR.
--- NOTE | 2020-01-03 16:25 | NUR ---
LAB AND RT AT BEDSIDE FOR EKG, ABG, AND LABS
--- NOTE | 2020-01-03 16:36 | NUR ---
CALLED DR MORLEY TO NOTIFY THAT PT IS SINUS TACH AND IF DIGOXIN WAS TO STILL BE GIVEN. HE STATES YES.
--- NOTE | 2020-01-03 16:45 | NUR ---
PT MEDICATED WITH DIGOXIN PER MD ORDERS. PT TOLERATED WELL. PT REMAINS ST ON MONITOR. WILL ORDER EKG FOR 1 HOUR.
[2020-01-03 17:07] LABS: HEMATOCRIT 41.1 % (37.0-47.0); HEMOGLOBIN 11.9 g/dl (12.0-16.0); IMMATURE GRANULOCYTES 0.3 % (0.0-5.0); MEAN CELL VOLUME 83.5 fL CALC (80.0-100.0); MEAN CORPUSCULAR HGB 24.2 pG CALC (26.0-32.0); NEUT# 6.18 thou/uL (2.00-7.15); RED BLOOD COUNT 4.92 mill/uL (4.20-5.60); RED CELL DISTRI WIDTH 17.2 % (11.5-15.5)
[2020-01-03 17:27] LABS: ALBUMIN 4.1 g/dL (3.2-5.0); ALKALINE PHOSPHATASE 104 u/l (38-126); ANION GAP 12 (6-22 (CALC)); BILIRUBIN, TOTAL 0.2 mg/dL (0.0-1.4); BUN 7 mg/dL (7-17); BUN/CREATININE RATIO 14 (12-20 (CALC)); CARBON DIOXIDE 25 mmol/l (22-30); CHLORIDE 104 mmol/l (95-108); CREATININE 0.5 mg/dL (0.5-1.0); GFR > 60 ML/MIN (>=60 (CALC)); GFR FOR AFR.AMER. > 60 ML/MIN (>=60 (CALC)); POTASSIUM 3.7 mmol/l (3.5-5.1); SGOT/AST 28 u/l (14-36); SODIUM 138 mmol/l (137-146); TOTAL PROTEIN 7.1 g/dL (6.3-8.2)
--- NOTE | 2020-01-03 17:36 | NUR ---
PT SET UP FOR PM MEAL AT THIS TIME.
--- NOTE | 2020-01-03 17:45 | NUR ---
PT WITH COMPLAINTS OF CHEST PRESSURE AT THIS TIME. PT REMAINS SR-ST ON MONITOR. VSS. RT CALLED FOR REPEAT EKG NOW.
[2020-01-03 17:58] LABS: TSH, 3RD GENERATION 0.85 uIU/mL (0.47 - 4.68)
--- NOTE | 2020-01-03 18:01 | NUR ---
RADIOLOGY AND RT AT BEDSIDE AT THIS TIME.
--- NOTE | 2020-01-03 18:12 | NUR ---
DR MORLEY NOTIFIED OF CHEST PAIN AND EKG.
[2020-01-03 18:16] LABS: URINE BILIRUBIN - DIPSTICK NEGATIVE (NEGATIVE); URINE BLOOD DIPSTICK NEGATIVE (NEGATIVE); URINE CLARITY CLEAR; URINE COLOR YELLOW; URINE GLUCOSE - DIPSTICK NEGATIVE (NEGATIVE); URINE KETONE NEGATIVE (NEGATIVE); URINE LEUK ESTERASE NEGATIVE (Negative); URINE NITRITE - DIPSTICK NEGATIVE (Negative); URINE PROTEIN - DIPSTICK NEGATIVE (NEG-TRACE); URINE SPECIFIC GRAVITY 1.025; URINE UROBILINOGEN - DIPSTICK 0.2 E.U./dL (0.2)
--- NOTE | 2020-01-03 18:29 | NUR ---
PT PROVIDED SALAD AND SANDWICH PER PT REQUEST.
--- NOTE | 2020-01-03 18:34 | NUR ---
PT LEFT BEDSIDE.
--- NOTE | 2020-01-03 19:00 | NUR ---
REPORT TO ELDA GOODE.
--- NOTE | 2020-01-03 19:15 | NUR ---
PT AWAKE AND ALERT, IN SINUS RYTHMN AT THIS TIME. RESP AT BEDSIDE TO SET UP HOME C-PAP.
--- NOTE | 2020-01-03 20:00 | NUR ---
PT AWAKE AND ALERT WATCHING TV. PT IN SR AT 98. NO DISTRESS NOTED. CALL TERRY IN REACH.
--- NOTE | 2020-01-03 21:01 | NUR ---
OFFERED PT PRN ATIVAN FOR SLEEPING, PT ACCEPTED THEN REFUSED. PT WEARING HOME C-PAP AT THIS TIME, REMAINS SR 95. CALL TERRY IN REACH.
--- NOTE | 2020-01-03 21:11 | NUR ---
PT C/O HEADACHE, REQUESTED MED. PROVIDED PER MAY.
[2020-01-03] MEDS ORDERED: IRON (21:19)
--- NOTE | 2020-01-03 21:55 | NUR ---
LAB AT BEDSIDE FOR TROP DRAW.
[2020-01-04] VITALS (7 sets, daily range): BP systolic 110–140; BP diastolic 63–95
--- NOTE | 2020-01-04 | NUR ---
PT WITH HOME C-PAP ON, RELATED IMPROVEMENT OF HEADACHE. SR 91 NO NEEDS AT THIS TIME. CALL TERRY IN REACH.
--- NOTE | 2020-01-04 02:00 | NUR ---
PT WITH EYES CLOSED, SR 73. NO DISTRESS NOTED, CALL TERRY IN REACH.
--- NOTE | 2020-01-04 04:08 | NUR ---
PT WITH EYES CLOSED, HOME C-PAP IN PLACE. CALL TERRY IN REACH.
--- NOTE | 2020-01-04 06:00 | NUR ---
PT WITH HOME C-PAP ON, SR 80. NO DISTRESS NOTED. CALL TERRY IN REACH.
--- NOTE | 2020-01-04 06:00 | NUR ---
PT REQUESTED PAIN MED FOR ABD. REVIEWED MEDICATION SCHEDULE. PT AGREED SA02 98% SR WITH PVC'S 69. CALL TERRY IN REACH.
--- NOTE | 2020-01-04 06:45 | NUR ---
REPORT RECEIVED FROM ELDA GOODE. CARE ASSUMED.
--- NOTE | 2020-01-04 07:20 | NUR ---
PT UP TO BATHROOM TO VOID THEN ASSISTED TO WASH UP AND BRUSH TEETH. PT THEN IN RECLINER. SHIFT ASSESSMENT COMPLETED AT THIS TIME. IV PATENT X1. LAB AT BEDSIDE FOR LAB DRAW. RT AT BEDSIDE FOR REPEAT EKG NOW THAT RATE IS CONTROL TO CONFIRM. CALL LIGHT IN REACH. WILL CONTINUE TO MONITOR.
--- NOTE | 2020-01-04 07:35 | NUR ---
PT WIRE WEB WORKER LIGHT REQUESTING PAIN MEDICATION. PT MEDICATED PER MAY.
[2020-01-04 08:00] LABS: ALBUMIN 4.1 g/dL (3.2-5.0); ALKALINE PHOSPHATASE 95 u/l (38-126); ANION GAP 12 (6-22 (CALC)); BUN 10 mg/dL (7-17); BUN/CREATININE RATIO 18 (12-20 (CALC)); CARBON DIOXIDE 26 mmol/l (22-30); CHLORIDE 103 mmol/l (95-108); CREATININE 0.6 mg/dL (0.5-1.0); GFR > 60 ML/MIN (>=60 (CALC)); GFR FOR AFR.AMER. > 60 ML/MIN (>=60 (CALC)); SGOT/AST 27 u/l (14-36); SODIUM 137 mmol/l (137-146); TOTAL PROTEIN 7.2 g/dL (6.3-8.2)
[2020-01-04 08:01] LABS: BILIRUBIN, TOTAL 0.4 mg/dL (0.0-1.4)
[2020-01-04 08:06] LABS: HEMATOCRIT 43.8 % (37.0-47.0); HEMOGLOBIN 12.6 g/dl (12.0-16.0); IMMATURE GRANULOCYTES 0.3 % (0.0-5.0); MEAN CELL VOLUME 84.2 fL CALC (80.0-100.0); MEAN CORPUSCULAR HGB 24.2 pG CALC (26.0-32.0); MEAN CORPUSCULAR HGB CONC 28.8 g/dL CAL (32.0-36.0); NEUT# 4.25 thou/uL (2.00-7.15); RED BLOOD COUNT 5.2 mill/uL (4.20-5.60); RED CELL DISTRI WIDTH 17.6 % (11.5-15.5)
--- NOTE | 2020-01-04 08:15 | NUR ---
PT SET UP FOR AM MEAL AT THIS TIME
--- NOTE | 2020-01-04 08:30 | NUR ---
DR DIAL AT BEDSIDE.
--- NOTE | 2020-01-04 08:45 | NUR ---
PT BUTTON RIVETER LIGHT AND IS VERY UPSET WITH BREAKFAST. PT STATES " I DO NOT EAT SAUSAGE, I AM LACTOSE INTOLERANT, AND I DON'T WANT EGGS" PT DID REQUEST WAFFLES. CALLED DIETARY THERE ARE NO WAFFLES TODAY. PT DECIDED TO KEEP OATMEAL. THEN REQUESTED FRUIT. CALLED DIETARY AND REQUESTED FRUIT. PT STATES THAT SHE DOES NOT USE SILVERWARE ONLY PLASTIC CARDOZA.
--- NOTE | 2020-01-04 08:55 | NUR ---
DIETARY AT BEDSIDE AT THIS TIME TO GET PTS MEAL PREFERENCES.
--- NOTE | 2020-01-04 09:11 | NUR ---
DIEGO SMART AT BEDSIDE FOR CARDIOLOGY CONSULT AT THIS TIME.
[2020-01-04] MEDS ORDERED: NORCO1 TA1 PO (09:27)
[2020-01-04] MEDS ORDERED: BREO ELLIPTA1 INH IN (09:28)
[2020-01-04] MEDS ORDERED: CEFUROXIME500 MG PO (09:29)
[2020-01-04] MEDS ORDERED: TRULANCE3 MG PO (09:29)
[2020-01-04] MEDS ORDERED: DILTIAZEM HYDR240 M1 PO (09:30)
[2020-01-04] MEDS ORDERED: ISOSORB MONO30 MG PO (09:31)
--- NOTE | 2020-01-04 10:00 | NUR ---
PT SITTING UP IN RECLINER AT THIS TIME. RESP ARE EVEN AND UNLABORED. NO DISTRESS NOTED. CALL LIFGHT IN REACH. WILL CONTINUE TO MONITOR.
[2020-01-04] MEDS ORDERED: DIGOX250 MCG PO (11:37)
--- NOTE | 2020-01-04 12:11 | NUR ---
PT SITTING UP IN RECLINER EATING LUNCH AT THIS TIME. PT IS AWARE AND VERBALIZED UNDERSTANDING OF DISCHARGE.
--- NOTE | 2020-01-04 12:30 | NUR ---
DISCHARGE INSTRUCTIONS REVIEWED WITH PATIENT. EXPLAINED NEW MED DIGOXIN WAS AT PHARMACY. LAB SLIP FOR DIGOXIN GIVEN WELL. INSTRUCTED TO CALL FOR ASSISTANCE.
--- NOTE | 2020-01-04 13:00 | NUR ---
Discharge instructions given. Patient verbalizes understanding of same. Discharged in stable condition via Wheelchair to Home with family. All belongings sent with pt.
== END 2020-01-04 13:00 | disposition home or self-care (01) | DRG 310 ==
LOC: ICU 16:00
PROVIDERS: ADMIT Internal Medicine; ATTEND Internal Medicine
DX: I48.0 Paroxysmal atrial fibrillation (principal); I48.92 Unspecified atrial flutter; I10 Essential (primary) hypertension; I25.10 Atherosclerotic heart disease of native coronary artery without angina pectoris; F41.9 Anxiety disorder, unspecified; J45.40 Moderate persistent asthma, uncomplicated; G47.33 Obstructive sleep apnea (adult) (pediatric); Z86.73 Personal history of transient ischemic attack (TIA), and cerebral infarction without residual deficits; Z87.891 Personal history of nicotine dependence; Z79.01 Long term (current) use of anticoagulants; Z20.828 Contact with and (suspected) exposure to other viral communicable diseases
CPT/HCPCS: J1160

== ENCOUNTER 2020-02-07 07:05 | Day surgery (SDC) | payer BC ==
[~2020-02-07] VITALS: Ht 152.4 cm; Wt 95.3 kg
[~2020-02-07 07:05] MED LIST changes: +BREO ELLIPTA1 INH IN; +CEFUROXIME500 MG PO; +DIGOX250 MCG PO; +DILTIAZEM HYDR240 M1 PO; +IRON; +ISOSORB MONO30 MG PO; +NORCO1 TA1 PO; +SPIRONOLACTONE25 MG PO
[2020-02-07 14:02] VITALS: BP 99/55
--- NOTE | 2020-02-07 15:59 | NUR ---
PER PHYSICIAN; ADVISED PATIENT OF RECOMMENDATIONS FOLLOWING COLONOSCOPY, REPEAT COLONOSCOPY X 5 YEARS OR SOONER IF NEEDED, HIGH FIBER DIET, OTC SUPPOSITORIES & HYDROCORTISONE OINTMENT FOR SYMPTOMATIC HEMORRHOIDAL TREATMENT NEEDED. REPORT FORWARDED TO PRIMARY CARE FOR CONTINUITY OF CARE. PATIENT VERBALIZED UNDERSTANDING OF INFORMATION PROVIDED, REPEATED INFORMATION GIVEN, AND STATED WILL CALL IF CONCERNS ARISE.
== END 2020-02-07 10:54 | disposition home or self-care (01) | DRG 391 ==
LOC: ENDO 07:05 → ORM 08:45 → ENDO 10:54
PROVIDERS: ATTEND Surgery
PROC: 0DJD8ZZ Inspection of Lower Intestinal Tract, Via Natural or Artificial Opening Endoscopic (ICD-10-PCS; principal; 2020-02-07)
PROC: 0DJ08ZZ Inspection of Upper Intestinal Tract, Via Natural or Artificial Opening Endoscopic (ICD-10-PCS; 2020-02-07)
DX: K44.9 Diaphragmatic hernia without obstruction or gangrene (principal); K57.31 Diverticulosis of large intestine without perforation or abscess with bleeding; K64.8 Other hemorrhoids; D64.9 Anemia, unspecified; I48.91 Unspecified atrial fibrillation; Z87.19 Personal history of other diseases of the digestive system; Z86.010 Personal history of colon polyps

== ENCOUNTER 2021-05-17 11:42 | Observation (INO) | payer BC ==
[~2021-05-17] VITALS: Ht 152.4 cm; Wt 101.0 kg
[2021-05-17] MEDS ORDERED: NURTEC75 MG PO (12:35)
[2021-05-17] MEDS ORDERED: PROAIR HFA108 MCG/AC (12:36)
[2021-05-17] MEDS ORDERED: LORATADINE10 M4 PO (12:38)
--- NOTE | 2021-05-17 12:38 | NUR ---
PT ESCORTED TO ROOM 1 FOR EVALUATION OF SOB AND CP
[2021-05-17 14:17] LABS: HEMATOCRIT 43.1 % (37.0-47.0); HEMOGLOBIN 12.8 g/dl (12.0-16.0); IMMATURE GRANULOCYTES 0.1 % (0.0-5.0); MEAN CORPUSCULAR HGB 26.4 pG CALC (26.0-32.0); MEAN CORPUSCULAR HGB CONC 29.7 g/dL CAL (32.0-36.0); NEUT# 5.36 thou/uL (2.00-7.15); RED BLOOD COUNT 4.84 mill/uL (4.20-5.60); RED CELL DISTRI WIDTH 15.6 % (11.5-15.5)
[2021-05-17 14:27] LABS: ALBUMIN 4.7 g/dL (3.2-5.0); ALKALINE PHOSPHATASE 93 u/l (38-126); ANION GAP 14 (6-22 (CALC)); BUN 9 mg/dL (7-17); BUN/CREATININE RATIO 14 (12-20 (CALC)); CARBON DIOXIDE 28 mmol/l (22-30); CHLORIDE 104 mmol/l (95-108); CREATININE 0.7 mg/dL (0.5-1.0); GFR > 60 ML/MIN (>=60 (CALC)); GFR FOR AFR.AMER. > 60 ML/MIN (>=60 (CALC)); SGOT/AST 35 u/l (14-36); SODIUM 142 mmol/l (137-146); TOTAL PROTEIN 8.5 g/dL (6.3-8.2)
[2021-05-17 14:30] LABS: BILIRUBIN, TOTAL 0.1 mg/dL (0.0-1.4)
[2021-05-17 14:39] LABS: MYOGLOBIN 34 ng/mL (0 - 62)
[2021-05-17 16:54] LABS: URINE BILIRUBIN - DIPSTICK NEGATIVE (NEGATIVE); URINE BLOOD DIPSTICK NEGATIVE (NEGATIVE); URINE COLOR YELLOW; URINE GLUCOSE - DIPSTICK NEGATIVE (NEGATIVE); URINE KETONE 15 mg/dL (NEGATIVE); URINE LEUK ESTERASE NEGATIVE (NEGATIVE); URINE NITRITE - DIPSTICK NEGATIVE (Negative); URINE PROTEIN - DIPSTICK NEGATIVE (NEG-TRACE); URINE SPECIFIC GRAVITY 1.015; URINE UROBILINOGEN - DIPSTICK 0.2 E.U./dL (0.2)
--- NOTE | 2021-05-17 19:05 | NUR ---
REPORT CALLED TO RORO GOODE FOR MED SURG ADMIT
[2021-05-17 19:48] VITALS: BP 144/79
--- NOTE | 2021-05-17 20:45 | NUR ---
PHYSICAL ASSESMENT COMPLETE. PT CURRENTLY C/O PAIN AND DISCOMFORT. SCHEDULED MEDICATIONS AND PRN MEDICATION ADMINISTERED, SEE E-MAR. PT DENIES ANY NEEDS AT THIS TIME. PLAN OF CARE REVIEWED, PT DENIES QUESTIONS, VERBALIZES UNDERSTANDING. ITEMS WITHIN REACH, BED LOCKED IN LOW POSITION W/ BEDRAILS UP X2. CALL TERRY WITHIN REACH, AGREES TO CALL PRN.
--- NOTE | 2021-05-17 21:53 | NUR ---
PT RECEIVED FROM ED TO ROOM 279. ARRIVES VIA W/C ACCOMPANIED BY ED RN. PT AMBULATORY TO BED. GAIT UNSTEADY. PT DENIES PAIN AT THIS TIME. ORIENTED TO UNIT, ROOM, CALL TERRY, LIGHTS, TV. ICE WATER PROVIDED. CALL TERRY WITHIN REACH. AGREES TO CALL PRN.
[2021-05-18] VITALS: BP 114/67
[2021-05-18 04:00] VITALS: BP 125/68
[2021-05-18 06:25] LABS: CHOLESTEROL HDL RATIO 2.5 (<4.4 (CALC))
[2021-05-18 07:54] VITALS: BP 133/75
--- NOTE | 2021-05-18 07:57 | NUR ---
PT AWAKE ALERT AND APPROPRIATE. ASSISTED SAFELY WITH MINIMAL STANDBY ASSISTANCE FROM THE BED TO THE CHAIR. BREAKFAST TRAY PROVIDED. VSS, PT C/O HEADACHE. EMAR REVIEWED. WILL NOTIFY MD OF CONTINUAL HEADACHE, FOR ADDITIONAL OPTION. CALL LIGHT WITHIN REACH. INSTRUCTED PT TO CALL FOR ASSISTANCE, VERBALIZES UNDERSTANDING.
[2021-05-18] MEDS ORDERED: LEVALBUTER1.25 MG/3 NEB (08:31)
[2021-05-18] MEDS ORDERED: IPRATROPIUM BR0.02 % NEB (08:31)
[2021-05-18] MEDS ORDERED: ALDACTONE50 MG PO (08:32)
[2021-05-18] MEDS ORDERED: HYDROCODONE BIT1 TA9 PO (08:32)
[2021-05-18] MEDS ORDERED: TOPAMAX25 MG PO (08:33)
[2021-05-18] MEDS ORDERED: QULIPTA60 MG PO (08:34)
[2021-05-18] MEDS ORDERED: ISOSORB MONO30 MG PO (08:35)
--- NOTE | 2021-05-18 13:25 | NUR ---
PT GIVEN PAIN MEDICATION AT THIS TIME FOR PAIN IN NECK AND CHEST REGION. AUTHORIZED ADDITIONAL DOSE, CT ORDERED FOR AREAS JUST DESCRIBED TO BE IN PAIN. PT DENIES ANY OTHER TYPE OF DISTRESS. CALL LIGHT WITHIN REACH. INSTRUCTED PT TO CALL FOR ASSISTANCE. STATES UNDERSTANDING.
--- NOTE | 2021-05-18 13:51 | NUR ---
PT GIVEN ONE TIME DOSE OF NITRO PER REQUEST OF DR. MORLEY. PT STATES "MAYBE IT WILL JUST HELP WITH ME TIGHTNESS." RADIOLOGY ON THE PHONE, WILL ATTEMPT A LARGER IV SITE FOR CTA. PT STATES UNDERSTANDING.
--- NOTE | 2021-05-18 15:30 | NUR ---
PREVIOUSLY INDICATED, AUTHORIZED ADDITIONAL DOSE OF PAIN MEDICATION. PT STATES UNDERSTANDING. OF NO OTHER CHANGE OF FREQUENCY. ATTEMPTED TO OBTAIN LARGER IV SITE IN THE LAC WITH NO SUCCESS. NOTIFIED OTHER STAFF MEMBER FOR ASSISTANCE. WILL NOTIFY RADIOLOGY, WHEN IV SITE OBTAINED.
[2021-05-18 16:35] VITALS: BP 121/76
[2021-05-18 19:45] VITALS: BP 145/89
--- NOTE | 2021-05-18 19:50 | NUR ---
PATIENT SITTING IN RECLINER. NO SIGNS OF DISTRESS NOTED. REQUESTED PAIN MEDICATION AND A SLEEPING PILL. WILL PROVIDE PER EMAR ORDERS. ASSESSMENT COMPLETE. CALL LIGHT AND BELONGINGS REMAIN IN REACH.
--- NOTE | 2021-05-18 19:50 | NUR ---
REMOVED IV SITE #20 TO LT. AC PER PATIENT REQUEST. CATHETER TIP WAS INTACT.
--- NOTE | 2021-05-18 23:40 | NUR ---
PATIENT RESTING IN BED TOWARD HER LEFT SIDE. NO SIGNS OF DISTRESS OR PAIN NOTED. CALL LIGHT AND BELONGINGS REMAIN IN REACH.
[2021-05-19] VITALS: BP 119/72
[2021-05-19 03:47] VITALS: BP 145/78
--- NOTE | 2021-05-19 03:51 | NUR ---
PATIENT COMPLAINED OF PAIN TO NECK AND CHEST AREA AGAIN. PRN PAIN MEDICATION GIVEN PER REQUEST AND PER EMAR ORDERS. CALL LIGHT AND BELONGINGS REMAIN IN REACH.
--- NOTE | 2021-05-19 07:48 | NUR ---
REPORT RECEIVED FROM RUPA REYES. PT AWAKE AND ALERT SITTING AT THE SIDE OF BED EATING BREAKFAST TRAY. VSS. PT C/O PAIN TO THE NECK AND SURROUNDING CHEST. DENIES SOB, C/O BREAKFAST TRAY. POC DISCUSSED. PT EAGER FOR RADIOLOGY RESULTS FROM YESTERDAY. CALL LIGHT WITHIN REACH. INSTRUCTED PT TO CALL FOR ASSISTANCE, VERBALIZES UNDERSTANDING.
[2021-05-19 07:51] VITALS: BP 127/71
[2021-05-19 10:57] VITALS: BP 121/82
[2021-05-19] MEDS ORDERED: NITROSTAT0.4 MG SL (11:38)
--- NOTE | 2021-05-19 12:00 | NUR ---
PT AWARE OF DISCHARGE. WILL INITITIATE DISCHARGE PROCESS. PT STATES UNDERSTANDING.
--- NOTE | 2021-05-19 15:15 | NUR ---
PT DISCHARGED AT THIS TIME IN STABLE CONDITION. BELONGINGS WITH PATIENT. INSTRUCTIONS PROVIDED. STABLE AT TIME OF DEPARTURE.
== END 2021-05-19 15:15 | disposition home or self-care (01) | DRG 313 ==
LOC: ED 11:42 → ED-I 16:01 → ED 16:16 → MS2 16:17
PROVIDERS: Emergency Medicine; ADMIT Internal Medicine; ATTEND Internal Medicine
DX: R07.9 Chest pain, unspecified (principal); I10 Essential (primary) hypertension; I48.0 Paroxysmal atrial fibrillation; I25.119 Atherosclerotic heart disease of native coronary artery with unspecified angina pectoris; J45.909 Unspecified asthma, uncomplicated; F41.9 Anxiety disorder, unspecified; G47.33 Obstructive sleep apnea (adult) (pediatric); K21.9 Gastro-esophageal reflux disease without esophagitis; Z79.01 Long term (current) use of anticoagulants; Z86.73 Personal history of transient ischemic attack (TIA), and cerebral infarction without residual deficits; Z87.891 Personal history of nicotine dependence; Z20.822 Contact with and (suspected) exposure to COVID-19
CPT/HCPCS: G0378; Q9967

== ENCOUNTER 2021-08-06 10:36 | Emergency (ER) | payer OTHER, BC ==
[~2021-08-06] VITALS: Ht 152.4 cm; Wt 100.0 kg
[~2021-08-06 10:36] MED LIST changes: +ALDACTONE50 MG PO; +HYDROCODONE BIT1 TA9 PO; +IPRATROPIUM BR0.02 % NEB; +LEVALBUTER1.25 MG/3 NEB; +NITROSTAT0.4 MG SL; +NURTEC75 MG PO; +PROAIR HFA108 MCG/AC; +QULIPTA60 MG PO; +TOPAMAX25 MG PO
[2021-08-06 12:25] LABS: URINE BILIRUBIN - DIPSTICK NEGATIVE (NEGATIVE); URINE BLOOD DIPSTICK NEGATIVE (NEGATIVE); URINE COLOR YELLOW; URINE GLUCOSE - DIPSTICK NEGATIVE (NEGATIVE); URINE KETONE NEGATIVE (NEGATIVE); URINE LEUK ESTERASE NEGATIVE (NEGATIVE); URINE PH 6.5 (4.5-8.0); URINE PROTEIN - DIPSTICK NEGATIVE (NEG-TRACE); URINE SPECIFIC GRAVITY <=1.005; URINE UROBILINOGEN - DIPSTICK 0.2 E.U./dL (0.2)
[2021-08-06 12:31] LABS: URINE NITRITE - DIPSTICK NEGATIVE (Negative)
[2021-08-06 13:06] VITALS: BP 150/89
[2021-08-06] MEDS ORDERED: NAPROXEN500 MG PO (13:37)
[2021-08-06] MEDS ORDERED: FLEXERIL5 M1 PO (13:37)
== END 2021-08-06 13:45 | disposition home or self-care (01) | DRG 552 ==
LOC: ED 10:36
PROVIDERS: Nurse Practitioner
DX: S16.1XXA Strain of muscle, fascia and tendon at neck level, initial encounter (principal); I10 Essential (primary) hypertension; I48.91 Unspecified atrial fibrillation; J45.909 Unspecified asthma, uncomplicated; V49.40XA Driver injured in collision with unspecified motor vehicles in traffic accident, initial encounter

== ENCOUNTER 2021-12-01 09:41 | Emergency (ER) | payer BC ==
[~2021-12-01] VITALS: Ht 152.4 cm; Wt 101.0 kg
[2021-12-01] VITALS (8 sets, daily range): BP systolic 129–157; BP diastolic 63–99
[~2021-12-01 09:41] MED LIST changes: +FLEXERIL5 M1 PO; +NAPROXEN500 MG PO
[2021-12-01 10:21] LABS: HEMATOCRIT 33.4 % (37.0-47.0); HEMOGLOBIN 9.7 g/dl (12.0-16.0); IMMATURE GRANULOCYTES 0.3 % (0.0-5.0); MEAN CELL VOLUME 75.7 fL CALC (80.0-100.0); NEUT# 8.16 thou/uL (2.00-7.15); RED BLOOD COUNT 4.41 mill/uL (4.20-5.60)
[2021-12-01 10:36] LABS: ALBUMIN 4.4 g/dL (3.2-5.0); ALKALINE PHOSPHATASE 105 u/l (38-126); BILIRUBIN, TOTAL 0.3 mg/dL (0.0-1.4); BUN 13 mg/dL (7-17); BUN/CREATININE RATIO 18 (12-20 (CALC)); CHLORIDE 101 mmol/l (95-108); CREATININE 0.7 mg/dL (0.5-1.0); GFR FOR AFR.AMER. > 60 ML/MIN (>=60 (CALC)); GFR OTHER RACES > 60 ML/MIN (>=60 (CALC)); SGOT/AST 21 u/l (14-36); SODIUM 138 mmol/l (137-146); TOTAL PROTEIN 7.5 g/dL (6.3-8.2)
[2021-12-01 10:39] LABS: ANION GAP 12 (6-22 (CALC)); CARBON DIOXIDE 29 mmol/l (22-30)
[2021-12-01] MEDS ORDERED: CEFUROXIME250 MG PO (10:41)
[2021-12-01] MEDS ORDERED: XANAX0.25 MG PO (10:42)
[2021-12-01 11:12] LABS: URINE BILIRUBIN - DIPSTICK NEGATIVE (NEGATIVE); URINE BLOOD DIPSTICK TRACE-LYSED (NEGATIVE); URINE COLOR YELLOW; URINE GLUCOSE - DIPSTICK NEGATIVE (NEGATIVE); URINE KETONE NEGATIVE (NEGATIVE); URINE LEUK ESTERASE NEGATIVE (NEGATIVE); URINE PH 6.5 (4.5-8.0); URINE PROTEIN - DIPSTICK NEGATIVE (NEG-TRACE); URINE SPECIFIC GRAVITY <=1.005; URINE UROBILINOGEN - DIPSTICK 0.2 E.U./dL (0.2)
[2021-12-01 11:13] LABS: URINE NITRITE - DIPSTICK NEGATIVE (Negative)
== END 2021-12-01 15:09 | disposition home or self-care (01) | DRG 313 ==
LOC: ED 09:41
PROVIDERS: Family Medicine
DX: R07.89 Other chest pain (principal); R10.31 Right lower quadrant pain; I10 Essential (primary) hypertension; E11.9 Type 2 diabetes mellitus without complications; I48.91 Unspecified atrial fibrillation; E66.9 Obesity, unspecified; J45.909 Unspecified asthma, uncomplicated
CPT/HCPCS: Q9967

== ENCOUNTER 2022-02-22 20:40 | Emergency (ER) | payer BC ==
[~2022-02-22] VITALS: Ht 152.4 cm; Wt 100.0 kg
[~2022-02-22 20:40] MED LIST changes: +CEFUROXIME250 MG PO; +HYDROCO/APAP1 TA9 PO; +IPRATROPIU0.5 MG/3 M IN; +MULTI VIT PO; +PROAIR HFA IN; +SLOW MAG; +XOLAIR
[2022-02-22] MEDS ORDERED: CEFUROXIME500 MG PO (21:15)
[2022-02-22] MEDS ORDERED: DILTIAZEM HCL60 MG PO (21:21)
[2022-02-22] MEDS ORDERED: LORATADINE10 M1 PO (21:23)
[2022-02-22 22:14] LABS: HEMATOCRIT 33.6 % (37.0-47.0); HEMOGLOBIN 9.3 g/dl (12.0-16.0); IMMATURE GRANULOCYTES 0.3 % (0.0-5.0); MEAN CELL VOLUME 74.5 fL CALC (80.0-100.0); MEAN CORPUSCULAR HGB 20.6 pG CALC (26.0-32.0); MEAN CORPUSCULAR HGB CONC 27.7 g/dL CAL (32.0-36.0); NEUT# 7.21 thou/uL (2.00-7.15); RED BLOOD COUNT 4.51 mill/uL (4.20-5.60); RED CELL DISTRI WIDTH 20.6 % (11.5-15.5)
[2022-02-22 22:26] LABS: ALKALINE PHOSPHATASE 92 u/l (38-126); ANION GAP 13 (6-22 (CALC)); BILIRUBIN, TOTAL 0.4 mg/dL (0.0-1.4); BUN 15 mg/dL (7-17); BUN/CREATININE RATIO 22 (12-20 (CALC)); CARBON DIOXIDE 24 mmol/l (22-30); CHLORIDE 106 mmol/l (95-108); CREATININE 0.7 mg/dL (0.5-1.0); GFR FOR AFR.AMER. > 60 ML/MIN (>=60 (CALC)); GFR OTHER RACES > 60 ML/MIN (>=60 (CALC)); SODIUM 139 mmol/l (137-146); TOTAL PROTEIN 7.2 g/dL (6.3-8.2)
[2022-02-22 22:37] LABS: SGOT/AST 41 u/l (14-36)
[2022-02-23 00:44] VITALS: BP 156/87
[2022-02-28] MEDS ORDERED: XOLAIR150 MG SC (09:22)
[2022-02-28] MEDS ORDERED: SILVER SL (09:23)
[2022-02-28] MEDS ORDERED: CLEAR LUNGS PO (09:24)
[2022-02-28] MEDS ORDERED: SLOW-MAG PO (09:25)
== END 2022-02-23 00:45 | disposition home or self-care (01) | DRG 552 ==
LOC: ED 20:40
PROVIDERS: Family Medicine
DX: M54.2 Cervicalgia (principal); I10 Essential (primary) hypertension; J45.909 Unspecified asthma, uncomplicated; I48.91 Unspecified atrial fibrillation
CPT/HCPCS: Q9967

== ENCOUNTER 2022-03-03 07:43 | Day surgery (SDC) | payer BC ==
[~2022-03-03] VITALS: Ht 152.4 cm; Wt 100.7 kg
[~2022-03-03 07:43] MED LIST changes: +CLEAR LUNGS PO; +DILTIAZEM HCL60 MG PO; +LORATADINE10 M1 PO; +SILVER SL
[2022-03-03 10:33] VITALS: BP 135/85
== END 2022-03-03 10:33 | disposition home or self-care (01) | DRG 812 ==
LOC: ENDO 07:43 → ORM 09:30 → ENDO 10:33 → ORM 17:00
PROVIDERS: ATTEND Internal Medicine Gastroenterology
PROC: 0DB98ZX Excision of Duodenum, Via Natural or Artificial Opening Endoscopic, Diagnostic (ICD-10-PCS; principal; 2022-03-03)
PROC: 0DB78ZX Excision of Stomach, Pylorus, Via Natural or Artificial Opening Endoscopic, Diagnostic (ICD-10-PCS; 2022-03-03)
PROC: 0DBK8ZX Excision of Ascending Colon, Via Natural or Artificial Opening Endoscopic, Diagnostic (ICD-10-PCS; 2022-03-03)
PROC: 0DBN8ZX Excision of Sigmoid Colon, Via Natural or Artificial Opening Endoscopic, Diagnostic (ICD-10-PCS; 2022-03-03)
DX: D50.9 Iron deficiency anemia, unspecified (principal); R19.5 Other fecal abnormalities; K29.70 Gastritis, unspecified, without bleeding; K31.9 Disease of stomach and duodenum, unspecified; K44.9 Diaphragmatic hernia without obstruction or gangrene; K57.30 Diverticulosis of large intestine without perforation or abscess without bleeding; K63.5 Polyp of colon; K64.8 Other hemorrhoids; Z87.891 Personal history of nicotine dependence

== ENCOUNTER 2022-04-18 09:59 | Emergency (ER) | payer BC ==
[~2022-04-18] VITALS: Ht 152.4 cm; Wt 102.4 kg
[2022-04-18 10:42] LABS: BASO% 0.3 % (0-3); EOS% 3.8 % (0-8); HEMATOCRIT 38.6 % (37.0-47.0); LYMPH% 39.9 % (15-41); MEAN CORPUSCULAR HGB 23.9 pG CALC (26.0-32.0); MEAN CORPUSCULAR HGB CONC 29.3 g/dL CAL (32.0-36.0); MONO% 6.4 % (2-13); NEUT# 3.28 thou/uL (2.00-7.15); NEUT% 49.6 % (42-76); RED BLOOD COUNT 4.73 mill/uL (4.20-5.60)
[2022-04-18 10:50] LABS: HEMOGLOBIN 11.3 g/dl (12.0-16.0); MEAN CELL VOLUME 81.6 fL CALC (80.0-100.0)
[2022-04-18 10:53] LABS: ALBUMIN 4.6 g/dL (3.2-5.0); BUN 11 mg/dL (7-17); BUN/CREATININE RATIO 17 (12-20 (CALC)); CREATININE 0.7 mg/dL (0.5-1.0); GFR FOR AFR.AMER. > 60 ML/MIN (>=60 (CALC)); GFR OTHER RACES > 60 ML/MIN (>=60 (CALC)); SODIUM 141 mmol/l (137-146); TOTAL PROTEIN 7.9 g/dL (6.3-8.2)
[2022-04-18 11:34] LABS: ALKALINE PHOSPHATASE 78 u/l (38-126); CARBON DIOXIDE 26 mmol/l (22-30); CHLORIDE 105 mmol/l (95-108); POTASSIUM 3.9 mmol/l (3.5-5.1); SGOT/AST 37 u/l (14-36)
[2022-04-18 11:39] LABS: ANION GAP 14 (6-22 (CALC))
[2022-04-18 11:48] LABS: URINE BILIRUBIN - DIPSTICK NEGATIVE (NEGATIVE); URINE BLOOD DIPSTICK TRACE-INTACT (NEGATIVE); URINE COLOR YELLOW; URINE GLUCOSE - DIPSTICK NEGATIVE (NEGATIVE); URINE KETONE NEGATIVE (NEGATIVE); URINE LEUK ESTERASE NEGATIVE (NEGATIVE); URINE PROTEIN - DIPSTICK NEGATIVE (NEG-TRACE); URINE UROBILINOGEN - DIPSTICK 0.2 E.U./dL (0.2)
[2022-04-18 11:51] LABS: URINE NITRITE - DIPSTICK NEGATIVE (Negative)
[2022-04-18] MEDS ORDERED: NEURONTIN300 MG PO ×2 (12:18→16:38)
[2022-04-18] MEDS ORDERED: ACYCLOVIR400 MG PO ×2 (12:18→16:38)
== END 2022-04-18 13:01 | disposition home or self-care (01) | DRG 596 ==
LOC: ED 09:59
PROVIDERS: Emergency Medicine
DX: B02.9 Zoster without complications (principal); I10 Essential (primary) hypertension; I48.91 Unspecified atrial fibrillation; J45.909 Unspecified asthma, uncomplicated; R10.84 Generalized abdominal pain; M25.552 Pain in left hip
CPT/HCPCS: Q9967

== ENCOUNTER 2022-07-19 16:50 | Emergency (ER) | payer BC ==
[~2022-07-19] VITALS: Ht 152.4 cm; Wt 100.0 kg
[~2022-07-19 16:50] MED LIST changes: +ACYCLOVIR400 MG PO; +NEURONTIN300 MG PO
[2022-07-19 16:55] VITALS: BP 145/98
[2022-07-19 17:01] VITALS: BP 148/88
[2022-07-19] MEDS ORDERED: CARDIZEM CD240 MG PO (17:05)
[2022-07-19 18:13] LABS: URINE BILIRUBIN - DIPSTICK NEGATIVE (NEGATIVE); URINE BLOOD DIPSTICK NEGATIVE (NEGATIVE); URINE COLOR YELLOW; URINE GLUCOSE - DIPSTICK NEGATIVE (NEGATIVE); URINE KETONE NEGATIVE (NEGATIVE); URINE LEUK ESTERASE NEGATIVE (NEGATIVE); URINE NITRITE - DIPSTICK NEGATIVE (Negative); URINE PH 7.5 (4.5-8.0); URINE PROTEIN - DIPSTICK NEGATIVE (NEG-TRACE); URINE UROBILINOGEN - DIPSTICK 0.2 E.U./dL (0.2)
[2022-07-19 18:13] LABS: BASO% 0.4 % (0-3); EOS% 2.1 % (0-8); HEMATOCRIT 41.8 % (37.0-47.0); HEMOGLOBIN 12.4 g/dl (12.0-16.0); IMMATURE GRANULOCYTES 0.2 % (0.0-5.0); LYMPH% 29.6 % (15-41); MEAN CELL VOLUME 84.6 fL CALC (80.0-100.0); MEAN CORPUSCULAR HGB 25.1 pG CALC (26.0-32.0); MEAN CORPUSCULAR HGB CONC 29.7 g/dL CAL (32.0-36.0); MONO% 6.7 % (2-13); NEUT# 5.42 thou/uL (2.00-7.15); RED BLOOD COUNT 4.94 mill/uL (4.20-5.60); RED CELL DISTRI WIDTH 15.8 % (11.5-15.5)
[2022-07-19 18:24] LABS: ALBUMIN 4.5 g/dL (3.2-5.0); ALKALINE PHOSPHATASE 124 u/l (38-126); ANION GAP 15 (6-22 (CALC)); BILIRUBIN, TOTAL 0.6 mg/dL (0.02-1.3); BUN 8 mg/dL (7-17); BUN/CREATININE RATIO 13 (12-20 (CALC)); CARBON DIOXIDE 22 mmol/l (22-30); CHLORIDE 106 mmol/l (95-108); CREATININE 0.6 mg/dL (0.5-1.0); GFR FOR AFR.AMER. > 60 ML/MIN (>=60 (CALC)); GFR OTHER RACES > 60 ML/MIN (>=60 (CALC)); POTASSIUM 3.8 mmol/l (3.5-5.1); SGOT/AST 63 u/l (14-36); SODIUM 139 mmol/l (137-146); TOTAL PROTEIN 8.2 g/dL (6.3-8.2)
[2022-07-19] MEDS ORDERED: CYCLOBENZAPRINE10 MG PO (19:57)
[2022-07-19] MEDS ORDERED: ULTRAM50 MG PO (19:57)
[2022-07-19 20:05] VITALS: BP 143/80
== END 2022-07-19 20:12 | disposition home or self-care (01) | DRG 552 ==
LOC: ED 16:50
PROVIDERS: Family Medicine
DX: S33.5XXA Sprain of ligaments of lumbar spine, initial encounter (principal); I10 Essential (primary) hypertension; I48.91 Unspecified atrial fibrillation; J45.909 Unspecified asthma, uncomplicated; X58.XXXA Exposure to other specified factors, initial encounter; Z20.822 Contact with and (suspected) exposure to COVID-19

== ENCOUNTER 2022-11-10 18:32 | Observation (INO) | payer BC ==
[~2022-11-10] VITALS: Ht 152.4 cm; Wt 97.4 kg
[~2022-11-10 18:32] MED LIST changes: +CARDIZEM CD240 MG PO; +CYCLOBENZAPRINE10 MG PO
[2022-11-10 18:37] VITALS: BP 150/93
[2022-11-10 19:02] LABS: BASO% 0.1 % (0-3); EOS% 6.1 % (0-8); HEMATOCRIT 42.1 % (37.0-47.0); HEMOGLOBIN 12.6 g/dl (12.0-16.0); IMMATURE GRANULOCYTES 0.1 % (0.0-5.0); LYMPH% 34.1 % (15-41); MEAN CELL VOLUME 86.4 fL CALC (80.0-100.0); MEAN CORPUSCULAR HGB 25.9 pG CALC (26.0-32.0); MEAN CORPUSCULAR HGB CONC 29.9 g/dL CAL (32.0-36.0); MONO% 6.9 % (2-13); NEUT% 52.7 % (42-76); RED BLOOD COUNT 4.87 mill/uL (4.20-5.60); RED CELL DISTRI WIDTH 15.4 % (11.5-15.5)
[2022-11-10 19:12] VITALS: BP 140/84
[2022-11-10 19:24] LABS: ALBUMIN 4.5 g/dL (3.2-5.0); ALKALINE PHOSPHATASE 107 u/l (38-126); ANION GAP 13 (6-22 (CALC)); BILIRUBIN, TOTAL 0.4 mg/dL (0.02-1.3); BUN 9 mg/dL (7-17); BUN/CREATININE RATIO 11 (12-20 (CALC)); CHLORIDE 101 mmol/l (95-108); CREATININE 0.8 mg/dL (0.5-1.0); GFR FOR AFR.AMER. > 60 ML/MIN (>=60 (CALC)); GFR OTHER RACES > 60 ML/MIN (>=60 (CALC)); POTASSIUM 3.7 mmol/l (3.5-5.1); SGOT/AST 36 u/l (14-36); SODIUM 138 mmol/l (137-146); TOTAL PROTEIN 8.1 g/dL (6.3-8.2)
[2022-11-10 19:31] LABS: CARBON DIOXIDE 28 mmol/l (22-30)
[2022-11-10 20:01] VITALS: BP 128/77
[2022-11-10] MEDS ORDERED: MOUNJARO5 MG SC (20:57)
[2022-11-10] MEDS ORDERED: CLARITIN10 M1 PO (20:59)
[2022-11-10] MEDS ORDERED: LORTAB 5/3255 MG PO (20:59)
[2022-11-10 21:00] VITALS: BP 125/73
[2022-11-10 22:14] VITALS: BP 102/70
[2022-11-11 00:22] VITALS: BP 125/71
[2022-11-11 04:24] VITALS: BP 113/65
[2022-11-11 06:46] VITALS: BP 122/69
[2022-11-11 10:48] VITALS: BP 124/59
[2022-11-11 15:15] VITALS: BP 134/74
[2022-11-11] MEDS ORDERED: ZINC50 M1 PO (15:32)
[2022-11-11 18:52] VITALS: BP 125/78
[2022-11-11] MEDS ORDERED: CEFUROXIME500 MG PO (21:21)
[2022-11-12 00:11] VITALS: BP 133/75
[2022-11-12 04:11] VITALS: BP 136/77
[2022-11-12 07:11] VITALS: BP 113/60
[2022-11-12 08:56] VITALS: BP 118/62
[2022-11-12 11:07] VITALS: BP 100/62
[2022-11-12 15:10] VITALS: BP 125/86
== END 2022-11-12 16:19 | disposition home or self-care (01) | DRG 313 ==
LOC: ED 18:32 → ED-I 20:34 → ED 20:44 → MS2 20:45
PROVIDERS: Family Medicine; ADMIT Student in an Organized Health Care Education/Training Program; ATTEND Student in an Organized Health Care Education/Training Program
DX: R07.89 Other chest pain (principal); I10 Essential (primary) hypertension; I48.0 Paroxysmal atrial fibrillation; J45.909 Unspecified asthma, uncomplicated; G47.33 Obstructive sleep apnea (adult) (pediatric); M54.2 Cervicalgia; K21.9 Gastro-esophageal reflux disease without esophagitis; Z79.01 Long term (current) use of anticoagulants; Z86.73 Personal history of transient ischemic attack (TIA), and cerebral infarction without residual deficits; Z20.822 Contact with and (suspected) exposure to COVID-19
CPT/HCPCS: G0378

== ENCOUNTER 2023-05-11 10:34 | Emergency (ER) | payer OTHER ==
[~2023-05-11] VITALS: Ht 152.4 cm; Wt 83.0 kg
[~2023-05-11 10:34] MED LIST changes: +CLARITIN10 M1 PO; +LORTAB 5/3255 MG PO; +MOUNJARO5 MG SC; +ZINC50 M1 PO
[2023-05-11 11:00] VITALS: BP 129/91
[2023-05-11] MEDS ORDERED: MOUNJARO10 MG (11:01)
[2023-05-11] MEDS ORDERED: Pantoprazole Sodium 40 MG VIAL (Protonix) IV ONE (11:40)
[2023-05-11 11:49] LABS: BASO% 0.3 % (0-3); EOS% 2.5 % (0-8); HEMATOCRIT 43.9 % (37.0-47.0); HEMOGLOBIN 13.4 g/dl (12.0-16.0); IMMATURE GRANULOCYTES 0.2 % (0.0-5.0); LYMPH% 31.7 % (15-41); MEAN CELL VOLUME 87.3 fL CALC (80.0-100.0); MEAN CORPUSCULAR HGB 26.6 pG CALC (26.0-32.0); MEAN CORPUSCULAR HGB CONC 30.5 g/dL CAL (32.0-36.0); MONO% 6.6 % (2-13); NEUT# 3.56 thou/uL (2.00-7.15); NEUT% 58.7 % (42-76); RED BLOOD COUNT 5.03 mill/uL (4.20-5.60); RED CELL DISTRI WIDTH 14.5 % (11.5-15.5)
[2023-05-11 12:10] LABS: ALBUMIN 4.9 g/dL (3.2-5.0); ALKALINE PHOSPHATASE 101 u/l (38-126); ANION GAP 12 (6-22 (CALC)); BILIRUBIN, TOTAL 0.3 mg/dL (0.02-1.3); BUN 7 mg/dL (7-17); BUN/CREATININE RATIO 10 (12-20 (CALC)); CARBON DIOXIDE 29 mmol/l (22-30); CHLORIDE 105 mmol/l (95-108); CREATININE 0.7 mg/dL (0.5-1.0); GFR FOR AFR.AMER. > 60 ML/MIN (>=60 (CALC)); GFR OTHER RACES > 60 ML/MIN (>=60 (CALC)); SGOT/AST 31 u/l (14-36); SODIUM 141 mmol/l (137-146); TOTAL PROTEIN 8.3 g/dL (6.3-8.2)
[2023-05-11 12:16] LABS: POTASSIUM 4.5 mmol/l (3.5-5.1)
[2023-05-11] MEDS ORDERED: MAGNESIUM HYDROXIDE 30 ML UDC PO ONE (13:20)
[2023-05-11] MEDS ORDERED: LACTULOSE 20 GM/30 ML UDC PO ONE (13:20)
[2023-05-11 14:48] VITALS: BP 118/90
[2023-05-11 14:54] VITALS: BP 118/90
== END 2023-05-11 14:55 | disposition home or self-care (01) | DRG 392 ==
LOC: ED 10:34
PROVIDERS: Family Medicine
DX: K59.01 Slow transit constipation (principal); I10 Essential (primary) hypertension; E11.9 Type 2 diabetes mellitus without complications; I48.91 Unspecified atrial fibrillation; J45.909 Unspecified asthma, uncomplicated; Z90.49 Acquired absence of other specified parts of digestive tract
CPT/HCPCS: S0164

== ENCOUNTER 2023-10-28 02:00 | Emergency (ER) | payer OTHER ==
[2023-10-28] VITALS (9 sets, daily range): BP systolic 123–153; BP diastolic 70–94
[~2023-10-28] VITALS: Ht 152.4 cm; Wt 90.0 kg
[~2023-10-28 02:00] MED LIST changes: +MOUNJARO10 MG
[2023-10-28] MEDS ORDERED: ASPIRIN 81 MG/TAB PO ONE (02:35)
[2023-10-28] MEDS ORDERED: SODIUM CHLORIDE 0.9% 1,000 ML IV ONE (02:35)
[2023-10-28] MEDS ORDERED: KETOROLAC TROMETHAMINE 30 MG/ML SDV IV ONE (02:35)
[2023-10-28] MEDS ORDERED: METOPROLOL TARTRATE 25 MG/TAB PO ONE (02:35)
[2023-10-28] MEDS ORDERED: ALPRAZolam 1 MG/TAB PO ONE (02:40)
[2023-10-28] MEDS ORDERED: CYCLOBENZAPRINE HCL 5 MG TAB PO ONE (02:40)
[2023-10-28] MEDS ORDERED: AUGMENTIN500TAB PO (02:41)
[2023-10-28 02:47] LABS: BASO% 0.4 % (0-3); EOS% 2.5 % (0-8); HEMATOCRIT 41.6 % (37.0-47.0); HEMOGLOBIN 12.8 g/dl (12.0-16.0); IMMATURE GRANULOCYTES 0.1 % (0.0-5.0); LYMPH% 39.3 % (15-41); MEAN CELL VOLUME 87.8 fL CALC (80.0-100.0); MEAN CORPUSCULAR HGB CONC 30.8 g/dL CAL (32.0-36.0); MONO% 5.9 % (2-13); NEUT# 4.61 thou/uL (2.00-7.15); NEUT% 51.8 % (42-76); RED BLOOD COUNT 4.74 mill/uL (4.20-5.60); RED CELL DISTRI WIDTH 14.2 % (11.5-15.5)
[2023-10-28 02:55] LABS: ALBUMIN 4.8 g/dL (3.2-5.0); ALKALINE PHOSPHATASE 76 u/l (38-126); ANION GAP 10 (6-22 (CALC)); BILIRUBIN, TOTAL 0.4 mg/dL (0.02-1.3); BUN 10 mg/dL (7-17); BUN/CREATININE RATIO 11 (12-20 (CALC)); CARBON DIOXIDE 26 mmol/l (22-30); CHLORIDE 107 mmol/l (95-108); CREATININE 0.8 mg/dL (0.5-1.0); ESTIMATED GFR 84 ML/MIN (>=90 (CALC)); LIPASE 355 u/l (23-300); POTASSIUM 3.6 mmol/l (3.5-5.1); SGOT/AST 29 u/l (14-36); SODIUM 139 mmol/l (137-146); TOTAL PROTEIN 8.5 g/dL (6.3-8.2)
[2023-10-28] MEDS ORDERED: ASPIRIN 81 MG/TAB ONE (03:16)
[2023-10-28 03:40] LABS: URINE BILIRUBIN - DIPSTICK Negative (NEGATIVE); URINE BLOOD DIPSTICK Negative (NEGATIVE); URINE GLUCOSE - DIPSTICK Negative (NEGATIVE); URINE KETONE Negative (NEGATIVE); URINE LEUK ESTERASE Negative (NEGATIVE); URINE NITRITE - DIPSTICK Negative (Negative); URINE PROTEIN - DIPSTICK Negative (NEG-TRACE); URINE SPECIFIC GRAVITY <=1.005; URINE UROBILINOGEN - DIPSTICK 0.2 E.U./dL (0.2)
[2023-10-28 03:41] LABS: URINE COLOR Yellow
[2023-10-28] MEDS ORDERED: ZPAK PO (14:33)
== END 2023-10-28 04:24 | disposition home or self-care (01) | DRG 313 ==
LOC: ED 02:00
PROVIDERS: Family Medicine
DX: R07.89 Other chest pain (principal); I10 Essential (primary) hypertension; I48.91 Unspecified atrial fibrillation; J45.909 Unspecified asthma, uncomplicated

== ENCOUNTER 2023-10-28 11:33 | Emergency (ER) | payer OTHER ==
[~2023-10-28] VITALS: Ht 152.4 cm; Wt 73.9 kg
[2023-10-28] VITALS (13 sets, daily range): BP systolic 120–145; BP diastolic 78–92
[~2023-10-28 11:33] MED LIST changes: +AUGMENTIN500TAB PO
[2023-10-28] MEDS ORDERED: ASPIRIN 81 MG/TAB PO ONE (12:00)
[2023-10-28] MEDS ORDERED: NITROGLYCERIN 0.4 MG/TAB SL ONE (12:00)
[2023-10-28 12:12] LABS: BASO% 0.1 % (0-3); HEMATOCRIT 42.2 % (37.0-47.0); HEMOGLOBIN 12.8 g/dl (12.0-16.0); IMMATURE GRANULOCYTES 0.1 % (0.0-5.0); LYMPH% 15.9 % (15-41); MEAN CELL VOLUME 87.9 fL CALC (80.0-100.0); MEAN CORPUSCULAR HGB 26.7 pG CALC (26.0-32.0); MEAN CORPUSCULAR HGB CONC 30.3 g/dL CAL (32.0-36.0); MONO% 5.1 % (2-13); NEUT# 6.81 thou/uL (2.00-7.15); NEUT% 77.8 % (42-76); RED BLOOD COUNT 4.8 mill/uL (4.20-5.60); RED CELL DISTRI WIDTH 14.4 % (11.5-15.5)
[2023-10-28 12:20] LABS: ALBUMIN 4.5 g/dL (3.2-5.0); ALKALINE PHOSPHATASE 73 u/l (38-126); ANION GAP 11 (6-22 (CALC)); BILIRUBIN, TOTAL 0.5 mg/dL (0.02-1.3); BUN 7 mg/dL (7-17); BUN/CREATININE RATIO 11 (12-20 (CALC)); CARBON DIOXIDE 23 mmol/l (22-30); CHLORIDE 111 mmol/l (95-108); CREATININE 0.7 mg/dL (0.5-1.0); ESTIMATED GFR 99 ML/MIN (>=90 (CALC)); POTASSIUM 4.3 mmol/l (3.5-5.1); SGOT/AST 28 u/l (14-36); SODIUM 141 mmol/l (137-146)
[2023-10-28] MEDS ORDERED: MORPHINE SULFATE 4 MG/ML VIAL IV ONE (13:40)
[2023-10-28] MEDS ORDERED: ZPAK PO (14:33)
== END 2023-10-28 15:41 | disposition home or self-care (01) | DRG 313 ==
LOC: ED 11:33
PROVIDERS: Family Medicine
DX: R07.9 Chest pain, unspecified (principal); J02.9 Acute pharyngitis, unspecified; I10 Essential (primary) hypertension; E11.9 Type 2 diabetes mellitus without complications; I48.91 Unspecified atrial fibrillation; J45.909 Unspecified asthma, uncomplicated
CPT/HCPCS: Q9967

== ENCOUNTER 2024-02-10 08:42 | Emergency (ER) | payer OTHER ==
[~2024-02-10] VITALS: Ht 152.4 cm; Wt 72.5 kg
[2024-02-10] VITALS (10 sets, daily range): BP systolic 121–143; BP diastolic 77–88
[~2024-02-10 08:42] MED LIST changes: +ZPAK PO
[2024-02-10 09:32] LABS: BASO% 0.2 % (0-3); EOS% 2.4 % (0-8); HEMATOCRIT 42.5 % (37.0-47.0); IMMATURE GRANULOCYTES 0.2 % (0.0-5.0); LYMPH% 56.9 % (15-41); MEAN CELL VOLUME 89.1 fL CALC (80.0-100.0); MEAN CORPUSCULAR HGB 27.3 pG CALC (26.0-32.0); MEAN CORPUSCULAR HGB CONC 30.6 g/dL CAL (32.0-36.0); MONO% 6.5 % (2-13); NEUT# 2.14 thou/uL (2.00-7.15); NEUT% 33.8 % (42-76); RED BLOOD COUNT 4.77 mill/uL (4.20-5.60); RED CELL DISTRI WIDTH 14.1 % (11.5-15.5)
[2024-02-10 09:39] LABS: ALBUMIN 4.3 g/dL (3.2-5.0); ALKALINE PHOSPHATASE 64 u/l (38-126); ANION GAP 13 (6-22 (CALC)); BILIRUBIN, TOTAL 0.4 mg/dL (0.02-1.3); BUN 9 mg/dL (7-17); BUN/CREATININE RATIO 12 (12-20 (CALC)); CARBON DIOXIDE 29 mmol/l (22-30); CHLORIDE 102 mmol/l (95-108); CREATININE 0.7 mg/dL (0.5-1.0); ESTIMATED GFR 99 ML/MIN (>=90 (CALC)); POTASSIUM 3.8 mmol/l (3.5-5.1); SGOT/AST 37 u/l (14-36); SODIUM 140 mmol/l (137-146); TOTAL PROTEIN 7.4 g/dL (6.3-8.2)
[2024-02-10] MEDS ORDERED: ONDANSETRON HCl 4 MG/2 ML SDV IV ONE (10:35)
[2024-02-10] MEDS ORDERED: ZOFRAN4 MG/TAB PO (10:41)
== END 2024-02-10 10:59 | disposition home or self-care (01) | DRG 948 ==
LOC: ED 08:42
PROVIDERS: Family Medicine
DX: R53.83 Other fatigue (principal); I10 Essential (primary) hypertension; I48.91 Unspecified atrial fibrillation; J45.909 Unspecified asthma, uncomplicated; Z20.822 Contact with and (suspected) exposure to COVID-19

== ENCOUNTER 2024-02-14 13:26 | Observation (INO) | payer OTHER ==
[2024-02-14] VITALS (20 sets, daily range): BP systolic 55–140; BP diastolic 37–88
[~2024-02-14] VITALS: Ht 152.4 cm; Wt 72.2 kg
--- NOTE | 2024-02-14 13:29 | NUR ---
PT TO ROOM VIA WC
[2024-02-14] MEDS ORDERED: ASPIRIN 81 MG/TAB PO ONE (13:30)
[2024-02-14] MEDS ORDERED: NITROGLYCERIN 0.4 MG/TAB SL ONE (13:40)
[2024-02-14 13:44] LABS: BASO% 0.2 % (0-3); EOS% 0.8 % (0-8); HEMATOCRIT 42.4 % (37.0-47.0); HEMOGLOBIN 12.9 g/dl (12.0-16.0); IMMATURE GRANULOCYTES 0.2 % (0.0-5.0); LYMPH% 32.7 % (15-41); MEAN CELL VOLUME 89.1 fL CALC (80.0-100.0); MEAN CORPUSCULAR HGB 27.1 pG CALC (26.0-32.0); MEAN CORPUSCULAR HGB CONC 30.4 g/dL CAL (32.0-36.0); MONO% 8.5 % (2-13); NEUT# 5.11 thou/uL (2.00-7.15); NEUT% 57.6 % (42-76); RED BLOOD COUNT 4.76 mill/uL (4.20-5.60)
--- NOTE | 2024-02-14 13:54 | NUR ---
PT REPORT CHEST PAIN DECREASE TO 8/10.
[2024-02-14 13:58] LABS: ALBUMIN 4.8 g/dL (3.2-5.0); ALKALINE PHOSPHATASE 75 u/l (38-126); ANION GAP 14 (6-22 (CALC)); BILIRUBIN, TOTAL 0.5 mg/dL (0.02-1.3); BUN 6 mg/dL (7-17); BUN/CREATININE RATIO 10 (12-20 (CALC)); CARBON DIOXIDE 28 mmol/l (22-30); CHLORIDE 101 mmol/l (95-108); CREATININE 0.6 mg/dL (0.5-1.0); ESTIMATED GFR 103 ML/MIN (>=90 (CALC)); POTASSIUM 3.7 mmol/l (3.5-5.1); SGOT/AST 30 u/l (14-36); SODIUM 140 mmol/l (137-146); TOTAL PROTEIN 8.4 g/dL (6.3-8.2)
[2024-02-14] MEDS ORDERED: MORPHINE SULFATE 4 MG/ML VIAL IV ONE ×2 (14:15→17:20)
--- NOTE | 2024-02-14 14:23 | NUR ---
PT MEDICATED PER EMAR FOR PAIN
[2024-02-14] MEDS ORDERED: TRELEGY ELLIPTA1 AE1 (15:00)
[2024-02-14] MEDS ORDERED: DUPIXENT SC (15:01)
[2024-02-14] MEDS ORDERED: CIPROFLOXACN500 MG PO (15:02)
[2024-02-14] MEDS ORDERED: CALCIUM +1 PO (15:03)
[2024-02-14] MEDS ORDERED: CVS FLUTICASON50 MC1 (15:04)
--- NOTE | 2024-02-14 15:05 | NUR ---
PT REPORTS A DECREAS EIN CHEST PAIN TO 5/10. MD IS NOTIFIED.
--- NOTE | 2024-02-14 15:11 | NUR ---
PT REPORTS INCREASE IN PAIN TO 10/10 AFTER WALKING TO ER BATHROOM .
[2024-02-14] MEDS ORDERED: ONDANSETRON HCl 4 MG/2 ML SDV IV ONE (17:45)
--- NOTE | 2024-02-14 17:52 | NUR ---
PT PLACED ON 2L NC FOR COMFORT STATING SHE FEELS SOB WHEN MOVING DUE TO THE SHARP PAIN
--- NOTE | 2024-02-14 19:00 | NUR ---
PT LAYING IN BED, NO DISTRESS NOTED AT THIS TIME. PT UPDATED ON WAIT TIME AT THIS TIME. PT VERBALIZES UNDERSTANDING. CALL LIGHT WITH IN REACH. VITAL SIGNS STABLE,
[2024-02-14] MEDS ORDERED: Zaleplon 5 MG/CAP PO PRN (19:05)
[2024-02-14] MEDS ORDERED: MAGNESIUM HYDROXIDE 30 ML UDC PO PRN (19:05)
[2024-02-14] MEDS ORDERED: ACETAMINOPHEN 325 MG/TAB PO PRN (19:05)
[2024-02-14] MEDS ORDERED: ALBUTEROL SULFATE 8 GM INH IN PRN (19:10)
--- NOTE | 2024-02-14 19:48 | NUR ---
PT REPORT GIVEN TO ADILENE GOODE IN [facility] FLOOR
[2024-02-14] MEDS ORDERED: LORTAB5 PO (20:05)
[2024-02-14] MEDS ORDERED: DILTIAZEM HCL120 M1 PO (20:07)
--- NOTE | 2024-02-14 20:30 | NUR ---
LINE SERVICE SUPERVISOR MADE AWARE THAT PATIENT STILL COMPLAINING OF CHEST PAIN SHARP PS 10/10 RADIATED TO THE NECK, NEW ORDER MORPHINE AND TO RESUME LORTAB PS 4-7.
[2024-02-14] MEDS ORDERED: MORPHINE SULFATE 4 MG/ML VIAL IV PRN (20:40)
[2024-02-14] MEDS ORDERED: HYDROcodone 5 MG/Acetaminophen 325 MG/COMBO PO PRN (20:40)
[2024-02-14] MEDS ORDERED: dilTIAZem HCl EXTENDED RELEASE 120 MG CAP PO SCH (21:00)
--- NOTE | 2024-02-14 22:07 | NUR ---
RECEIVED REPORT5 FROM ED NURSE ESTRELLA, PATIENT ARRIVED TO MS UNIT BY WHEELCHAIR, ACCOMPANIED BY FAMILY, PATIENT STILL COMPLAINING OF CHEST PAIN UNRELIEVED RADIATES TO THE NECK, PATIENT HAS CHRONIC NECK PAIN TAKES LORTAB AT HOME EVERY 6 HOURS SEEN BY PAIN MANAGEMENT, PATIENT ARRIVED UNIT AT 1955, HOOKED ON TELEMETRY # 13, LUNG SOUNDS CLEAR, ACTIVE BOWEL SOUNDS, EDEMA TRACE NOTE ON RT ANKLE TAKES ANTIBIOTIC BID FOR HISTORY OF [facility] STATED LIFETIME, ADMISSION ASSESSMENT COMPLETED CALL LIGHT IN REACHED.
--- NOTE | 2024-02-14 22:08 | NUR ---
PT REQUESTED PAIN MEDICATION 10/10 ON PAIN SCALE, MEDICATED WITH LORTAB AT THIS TIME.
--- NOTE | 2024-02-14 23:19 | NUR ---
PT COMPLAINING OF NAUSEA AT THIS TIME. ORDER RECEIVED FROM KIRTI KIMBLE BY TELEPHONE TO ADMINISTER ZOFRAM 4MG Q6.
[2024-02-14] MEDS ORDERED: ONDANSETRON HCl 4 MG/2 ML SDV IV PRN (23:25)
--- NOTE | 2024-02-14 23:50 | NUR ---
PT MEDICATED WITH ZOFRAM 4 MG IV FOR NAUSEA AT THIS TIME. PT REQUESTED A HEAT PAD FOR HER CHEST. BREATHING EVEN AND UNLABORED. CALL LIGHT IN REACH AND SAFETY PRECAUTIONS IN PLACE.
--- NOTE | 2024-02-15 00:10 | NUR ---
PATIENT RESTING IN BED, ON O2 @ 2LPM VIA NC, CERAMIC WORKER IN ROOM FOR DUE TROPONIN, CALL LIGHT IN REACHED.
[2024-02-15 03:08] VITALS: BP 109/52
--- NOTE | 2024-02-15 03:17 | NUR ---
PATIENT STILL COMPLAINING OF CHEST PAIN, V/S STABLE RECORDED, TROP NEGATIVE, STAT EKG ORDERD.
--- NOTE | 2024-02-15 03:46 | NUR ---
STAT TROPONIN ORDERED.
[2024-02-15 04:09] VITALS: BP 99/66
--- NOTE | 2024-02-15 04:10 | NUR ---
PT RESTING ON BED WITH EYES OPEN. RESPS ARE EVEN AND UNLABORED. STATED PAIN ON HER CHEST 7/10 ON PAIN SCALE. BLOOD PRESSURE WAS RECHECKED AT THI TIME . TELE IN PLACE READING SR-78. CALL LIGHT IN REACH AND SAFETY PRECAUTIONS IN PLACE.
--- NOTE | 2024-02-15 04:29 | NUR ---
STAT TROPONIN RESULT NEGATIVE, NEW EKG RESULT RELAYED TO SET RIDER KIRTI KIMBLE, STATED THAT IT IS NORMAL, NOTIFIED THAT PATIENT STILL HAVING CHEST PAIN PS 7, THAT MORPHINE WAS GIVEN, NO NEW ORDERS MADE. AND TO D/C 6AM TROPONIN.
[2024-02-15 06:45] VITALS: BP 106/61
[2024-02-15 07:12] VITALS: BP 106/61
--- NOTE | 2024-02-15 08:00 | NUR ---
PATIENT A/O X3; ROOM AIR; BREATHING UNLABORED AND EVEN; DENIED ANY PAIN; DENIED ANY N/D/V AT THIS TIME; NO S.S OF DISTRESS AT THIS TIME; NO COMPLAINTS; IVSITE CLEAN AND INTACT SALINE LOCKED AT THIS TIME; TELE LEADS IN TACT AND WORKING; NO COMPLAINTS; CALL LIGHT WITHIN REACH, VERBALIZED UNDERSTANDING ON HOW TO USE, PERSONAL IETMS WITHIN REACH BED IN LOWEST POSTION;SAFETY MEASURES IN PLACE
[2024-02-15] MEDS ORDERED: PANTOPRAZOLE SODIUM Sesquihydr 40 MG/TAB PO SCH (09:00)
[2024-02-15] MEDS ORDERED: dilTIAZem HCl COATED BEADS 240 MG/CAP PO SCH (09:00)
[2024-02-15] MEDS ORDERED: ZPAK PO (09:14)
[2024-02-15] MEDS ORDERED: PREDNISONE10 MG PO (09:25)
[2024-02-15 10:32] VITALS: BP 111/66
[2024-02-15 10:42] VITALS: BP 111/66
--- NOTE | 2024-02-15 12:41 | NUR ---
IV site discontinued, cath intact. No edema , no redness, voices no discomfort. Discharge instructions given. Patient verbalizes understanding of same. Discharged in critical condition via Wheelchair to Home with family. All belongings sent with pt.
[2024-02-15] MEDS ORDERED: RIVAROXABAN 20 MG TAB PO SCH (17:00)
== END 2024-02-15 12:41 | disposition home or self-care (01) | DRG 313 ==
LOC: ED 13:26 → ED-I 16:20 → ED 16:31 → MS2 16:32
PROVIDERS: Family Medicine; ADMIT Internal Medicine; ATTEND Internal Medicine
DX: R07.89 Other chest pain (principal); J20.9 Acute bronchitis, unspecified; I10 Essential (primary) hypertension; I48.0 Paroxysmal atrial fibrillation; J45.909 Unspecified asthma, uncomplicated; G47.33 Obstructive sleep apnea (adult) (pediatric); F41.9 Anxiety disorder, unspecified; Z79.01 Long term (current) use of anticoagulants
CPT/HCPCS: G0378

== ENCOUNTER 2024-03-06 12:49 | Emergency (ER) | payer OTHER ==
[~2024-03-06] VITALS: Ht 152.4 cm; Wt 74.0 kg
[~2024-03-06 12:49] MED LIST changes: +CALCIUM +1 PO; +CVS FLUTICASON50 MC1; +DILTIAZEM HCL120 M1 PO; +DUPIXENT SC; +PREDNISONE10 MG PO; +TRELEGY ELLIPTA1 AE1
[2024-03-06] MEDS ORDERED: SODIUM CHLORIDE 0.9% 1,000 ML IV ONE (13:45)
[2024-03-06] MEDS ORDERED: ALUM & MAG HYDROX-SIMETHICONE 30 ML PO ONE (13:45)
[2024-03-06] MEDS ORDERED: LIDOCAINE VISCOUS 2% 15 ML UDC PO ONE (13:45)
[2024-03-06] MEDS ORDERED: ONDANSETRON HCl 4 MG/2 ML SDV IV ONE ×2 (13:45→15:00)
[2024-03-06] MEDS ORDERED: KETOROLAC TROMETHAMINE 15 MG/ML SDV IV ONE (13:45)
[2024-03-06 13:47] LABS: URINE BILIRUBIN - DIPSTICK Negative (NEGATIVE); URINE BLOOD DIPSTICK Small (NEGATIVE); URINE COLOR Yellow; URINE GLUCOSE - DIPSTICK Negative (NEGATIVE); URINE KETONE Negative (NEGATIVE); URINE LEUK ESTERASE Small (NEGATIVE); URINE NITRITE - DIPSTICK Negative (Negative); URINE PH 5.5 (4.5-8.0); URINE PROTEIN - DIPSTICK Negative (NEG-TRACE); URINE SPECIFIC GRAVITY <=1.005; URINE UROBILINOGEN - DIPSTICK 0.2 E.U./dL (0.2)
[2024-03-06 14:01] LABS: URINE SQUAMOUS EPITHELIAL CELL FEW EPI/hpf (0-FEW)
[2024-03-06 14:09] LABS: EOS% 0.3 % (0-8); HEMATOCRIT 42.7 % (37.0-47.0); HEMOGLOBIN 12.8 g/dl (12.0-16.0); IMMATURE GRANULOCYTES 0.8 % (0.0-5.0); LYMPH% 20.3 % (15-41); MEAN CELL VOLUME 91.4 fL CALC (80.0-100.0); MEAN CORPUSCULAR HGB 27.4 pG CALC (26.0-32.0); MONO% 7.9 % (2-13); NEUT# 6.76 thou/uL (2.00-7.15); NEUT% 70.7 % (42-76); RED BLOOD COUNT 4.67 mill/uL (4.20-5.60); RED CELL DISTRI WIDTH 15.8 % (11.5-15.5)
[2024-03-06 14:26] LABS: BILIRUBIN, TOTAL 0.6 mg/dL (0.02-1.3); CREATININE 0.8 mg/dL (0.5-1.0); POTASSIUM 3.4 mmol/l (3.5-5.1)
[2024-03-06 14:27] LABS: ALBUMIN 3.4 g/dL (3.2-5.0); TOTAL PROTEIN 5.9 g/dL (6.3-8.2)
[2024-03-06 15:23] VITALS: BP 106/52
[2024-03-06] MEDS ORDERED: DiphenhydrAMINE HCL 50 MG/ML SDV IV ONE (15:50)
[2024-03-06] MEDS ORDERED: METOCLOPRAMIDE HCL 10 MG/2 ML SDV IV ONE (15:50)
[2024-03-06] MEDS ORDERED: PEPCID AC20 M1 PO (16:20)
[2024-03-06 16:34] VITALS: BP 106/52
== END 2024-03-06 16:43 | disposition home or self-care (01) | DRG 392 ==
LOC: ED 12:49
PROVIDERS: Family Medicine
DX: R10.13 Epigastric pain (principal); E11.9 Type 2 diabetes mellitus without complications; I10 Essential (primary) hypertension; I48.91 Unspecified atrial fibrillation; J45.909 Unspecified asthma, uncomplicated
CPT/HCPCS: J1200; J1885; J2405; J2765; Q9967